=== PATIENT | male | born 1950 | race Caucasian/White ===

== ENCOUNTER 2020-07-03 17:02 | Outpatient (CLI) | payer MEDICARE, SELFPAY ==
--- NOTE | ~2020-07-03 | XR_ITS ---
XR_CERV2-3V_CR 07/03/2020 17:39 Indication: Chronic neck pain Procedure: 3 views of the cervical spine Comparison: No prior studies for comparison. Findings: Normal cervical alignment. There is disc narrowing at C5-6 and C6-7. There is moderate mult ilevel uncinate and facet hypertrophy. Lung apices are normal. There is carotid atherosclerosis. Marydel toid process within normal limits. Impression: 1: Moderate cervical spondylosis. Reviewed, dictated and finalized at location A. 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
--- NOTE | ~2020-07-03 | XR_ITS ---
XR thoracic spine 3V 07/03/2020 17:39 Indication: Chronic back pain Procedure: 4 views of the thoracic spine Comparison: No prior studies for comparison. Findings: There is normal alignment. There are prominent marginal osteophytes at the mid and lower th oracic spine. No acute fracture or traumatic malalignment. No paraspinal soft tissue abnormality. Deirdre rounding soft tissues and osseous structures are unremarkable. Vertebral body heights are maintained. Impression: 1: Moderate thoracic spondylosis. Reviewed, dictated and finalized at location A. 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
== END 2020-07-03 17:03 | disposition home or self-care (01) ==
LOC: CHSLAB 17:05
PROVIDERS: PCP Internal Medicine; Visit Provider Internal Medicine
DX: M54.6 Pain in thoracic spine (principal); M54.2 Cervicalgia
CPT/HCPCS: 72040; 72072

== ENCOUNTER 2020-07-13 08:19 | Outpatient (CLI) | payer MEDICARE, SELFPAY ==
--- NOTE | ~2020-07-13 | MR_ITS ---
EXAMINATION: MR thoracic spine wo con DATE: 07/13/2020 09:37 INDICATION: Chronic thoracic spine pain TECHNIQUE: Magnetic resonance imaging (MRI) of the thoracic spine was performed without intravenous c ontrast. Sagittal localizer T1-weighted FSE of the cervicothoracic spine was obtained. Thoracic spine sequences included sagittal T2-weighted FSE, sagittal T1-weighted SE, Sagittal T2-weighted FS FSE, a nd axial T2-weighted FSE. COMPARISON: Thoracic spine radiographs dated 07/03/2020 FINDINGS: 1-2 mm anterolisthesis C7 on T1.Normal alignment of the thoracic spine.Vertebral body heights are nor mal. There are small Schmorl's nodes involving multiple endplates throughout the thoracic spine. Mode rate disc height loss at T3-T4, T4-T5, T8-T9 through T11-T12 and mild disc height loss at the remaini ng thoracic levels. T1 hyperintense hemangioma at T1. Mild fibrofatty and fibrovascular degenerative endplate changes along the inferior endplates of T7, T11 and T12. Otherwise normal marrow signal. The re is normal spinal cord signal. The conus terminates below the level of the inferior margin of the f [id number] which is at the inferior endplate of L1. Multilevel bilateral thoracic facet osteoarthri tis which is of moderate severity bilaterally at T1-T2 through T2-T3 and at T10-T11, T11-T12 and T12- L1 and which is of mild severity at the intervening thoracic levels. This results in mild neural fora paul stenosis at multiple levels on both the left and right and the upper and lower thoracic spine. There are small disc bulges resulting in minimal to mild central canal stenosis at the majority the t horacic levels, the most prominent at T2-T3 through T4-T5. IMPRESSION: 1. Moderate thoracic spondylosis resulting in multilevel minimal to mild central canal and mild neura l foraminal stenosis. Reviewed, dictated and finalized at location A. IMPRESSION: 1. Moderate thoracic spondylosis resulting in multilevel minimal to mild centra l canal and mild neural foraminal stenosis.
--- NOTE | ~2020-07-13 | MR_ITS ---
EXAMINATION: MR cervical spine wo con DATE: 07/13/2020 09:37 INDICATION: Chronic neck pain. TECHNIQUE: Magnetic resonance imaging (MRI) of the cervical spine was performed without intravenous c ontrast. Sequences included sagittal T2-weighted FSE, sagittal T2-weighted FS FSE, sagittal T1-weight ed FSE, axial MERGE and axial T2-weighted FSE. COMPARISON: None FINDINGS: 1-2 mm anterolisthesis C7 on T1. Normal alignment of the cervical spine. Vertebral body heights are normal. T1 hyperintense hemangioma at T1. Mild fibrovascular degenerative endplate changes at C6-C7. Otherwise normal marrow signal. Mild disc height loss at C5-C6 and C6-C7. Cord signal intensity is no rmal. The visualized cervical soft tissues are unremarkable. The following disc levels are specifical ly discussed: C2-C3: The disc does not extend beyond the endplate margin. There is mild left uncovertebral joint os teoarthritis. There is moderate right and severe left facet joint osteoarthritis. There is mild bilat eral neural foraminal stenosis. There is no central canal stenosis. C3-C4: The disc does not extend beyond the endplate margin. There is mild bilateral uncovertebral adolfo nt osteoarthritis. There is mild left and severe right facet joint osteoarthritis. There is moderate bilateral neural foraminal stenosis. There is no central canal stenosis. C4-C5: The disc does not extend beyond the endplate margin. There is moderate bilateral uncovertebral joint osteoarthritis. There is moderate right and severe left facet joint osteoarthritis. There is m ild right and moderate to severe left neural foraminal stenosis. There is no central canal stenosis. C5-C6: Disc is bulging. There is moderate left and severe right uncovertebral joint osteoarthritis. T here is moderate left and severe right facet joint osteoarthritis. There is mild left and moderate ri ght neural foraminal stenosis. There is mild central canal stenosis. C6-C7: Disc is bulging. There is severe bilateral uncovertebral joint osteoarthritis. There is mild l eft and moderate right facet joint osteoarthritis. There is mild right and moderate left neural mauri inal stenosis. There is mild central canal stenosis. C7-T1: The disc does not extend beyond the endplate margin. There is mild right uncovertebral joint o steoarthritis. There is severe bilateral facet joint osteoarthritis. There is mild bilateral neural f oraminal stenosis. There is no central canal stenosis. IMPRESSION: 1. Cervical spondylosis with mild degenerative disc disease and multilevel moderate to severe facet a nd uncovertebral osteoarthritis. Reviewed, dictated and finalized at location A. IMPRESSION: 1. Cervical spondylosis with mild degenerative disc disease and multilevel mode rate to severe facet and uncovertebral osteoarthritis.
== END 2020-07-13 08:20 | disposition home or self-care (01) ==
LOC: CHSIMG 08:21
PROVIDERS: PCP Internal Medicine; Visit Provider Internal Medicine
DX: M54.2 Cervicalgia (principal); M54.6 Pain in thoracic spine
CPT/HCPCS: 72141; 72146

== ENCOUNTER 2020-12-20 07:46 | Outpatient (CLI) | payer MEDICARE, SELFPAY ==
--- NOTE | ~2020-12-20 | CT_ITS ---
EXAMINATION: CT chest abdomen w con EXAM DATE: 12/20/2020 08:27 INDICATION: Chest pain/abdominal pain radiating to back Lt Shoulder/Flank/Luq Pain X1.5yr,Nki,?Gall S tones . TECHNIQUE: Spiral CT of the chest and abdomen was performed following intravenous injection of 100 mL Omnipaque 350. Axial, coronal and sagittal images chest and abdomen were reviewed. Coronal maximum intensity pixel images of chest reviewed. The dose-length product (DLP) for this examination was 10 60.84 mGy-cm. The exposure was tailored according to patient size (auto mA exposure control), and it erative reconstruction (ASIR) was used as additional dose reduction technique. Comparison made to [facility] CT 03/25/2016 FINDINGS: CHEST: Fluid density anterior mediastinal mass most likely pericardial or thymic cyst but differentia l diagnosis does include thymoma, germ cell tumor. No soft tissue solid component identified along it s wall. Lungs are clear. There are no pleural or pericardial effusions. Tracheobronchial tree is p atent. There is no mediastinal, hilar or axillary lymphadenopathy. There is no pneumothorax. He art normal in size. There is mild coronary arterial calcification, arterial sclerosis. ABDOMEN: The liver, spleen, adrenal glands and pancreas are unremarkable. Gallbladder is unremarkabl e. No biliary obstruction. Portal and splenic veins are patent. Kidneys enhance symmetrically. Th ere is no hydronephrosis. Small renal lesions bilaterally consistent with cysts. There is no retrop eritoneal lymphadenopathy. There is mild scattered arteriosclerotic disease. Small umbilical fat-co ntaining hernia. There is mild descending and sigmoid colonic diverticulosis. There is no adjacent inflammatory tiwari e to suggest diverticulitis. The stomach and small bowel are unremarkable. There is expected amount of colonic stool. No free intraperitoneal gas. Bilateral L5 spondylolysis, chronic with grade 2 a nterolisthesis L5 on S1. There are no osteoblastic or osteolytic lesions identified. Right hip repla cement. IMPRESSION: 1. No acute chest or abdomen findings. 2. Anterior mediastinal cystic mass. Cardiothoracic surgeon typically indicated for histologic corre lation. 3. Colonic diverticulosis. 4. L5 spondylolysis, grade 2 anterolisthesis. Reviewed, dictated and finalized at location A. IMPRESSION: 1. No acute chest or abdomen findings. 2. Anterior mediastinal cystic mass. Cardiothoracic surgeon typically indicate d for histologic correlation. 3. Colonic diverticulosis. 4. L5 spondylolysis, grade 2 anterolisthesis.
[2020-12-20 08:06] LABS: Estimated Glomerular Filt Rate 54
== END 2020-12-20 07:47 | disposition home or self-care (01) ==
LOC: CHSIMG 07:47
PROVIDERS: PCP Internal Medicine; Visit Provider Internal Medicine
DX: R07.9 Chest pain, unspecified (principal); R10.9 Unspecified abdominal pain
CPT/HCPCS: 71260; 74160; Q9967

== ENCOUNTER 2024-01-06 01:45 | Day surgery (SDC) | payer MEDICARE, SELFPAY ==
[2023-12-16 12:03] VITALS: BMI 31.4
[2024-01-06 08:22] VITALS: BP 132/78; PULSE 77; RESP 20; TEMP 36.5; O2SAT 95
[2024-01-06] MEDS: LACTATED RINGERS 1,000 ML 150 ML IV CONT (08:32)
--- NOTE | 2024-01-06 09:02 | PM.IMHP ---
H&P: HPI History of Present Illness Date/Time: 01/06/24 09:02 Chief Complaint: Screening for colorectal cancer Narrative: this is a 73-year-old man who presents for colonoscopy. His last colonoscopy was 10 years ago. He denies any hematochezia or melena. He denies any family history of colon cancer. Review of Systems Review of Systems: All systems reviewed & are unremarkable except as noted in HPI and below Constitutional: Constitutional: Denies chills, Denies fever(s), Denies headache(s) and Denies weight loss Eyes: Eyes: Denies change in vision ENT: Denies dizziness, Denies headache(s), Denies neck mass and Denies throat swelling Cardiovascular: Cardiovascular: Denies chest pain, Denies lightheadedness and Denies dyspnea Respiratory: Respiratory: Denies cough, Denies dyspnea and Denies wheezing Gastrointestinal: Gastrointestinal: Denies abdominal pain, Denies change in bowel habits, Denies nausea and Denies vomiting Genitourinary: Genitourinary: Denies hematuria and Denies dysuria Musculoskeletal: Musculoskeletal: Reports as per HPI Integumentary/Breasts: Skin/Breast: Reports as per HPI Neurologic: Denies dizziness and Denies headache(s) Allergic/Immunologic: Allergic/Immunologic: Denies throat swelling and Denies wheezing PMFSH Social History Social History Smoking status: Never smoker Alcohol intake: never Substance use: never Substance use type: does not use Living arrangements: with family Spiritual care concerns: No Meds Home Medications and Allergies Home Medications Medication Instructions Recorded Confirmed Type pravastatin 40 mg tablet 40 mg PO DAILY 05/13/20 01/06/24 History amlodipine 5 mg tablet 5 mg PO DAILY 12/16/23 01/06/24 History ascorbic acid (vitamin C) 1,000 mg 1,000 mg PO DAILY 12/16/23 01/06/24 History tablet glucosamine sulf dipot 1 cap PO DAILY 12/16/23 01/06/24 History chlr,msm,chond 550 mg-C 30 mg-barry 1 mg capsule (Glucosamine Chondroitin) meloxicam 15 mg tablet 15 mg PO DAILY 12/16/23 01/06/24 History vitamin B complex 1 cap PO DAILY 12/16/23 01/06/24 History vitamin E 400 unit tablet 400 unit PO DAILY 12/16/23 01/06/24 History Allergies Allergy/AdvReac Type Severity Reaction Status Date / Time shellfish derived Allergy Hives Verified 01/06/24 08:20 Vital Signs Vital Signs - 24 hr 01/06/24 08:22 Temperature 36.5 C Pulse Rate 77 Respiratory Rate 20 Blood Pressure 132/78 Pulse Oximetry 95 Oxygen Delivery Room Air Exam Const: General: no acute distress and alert Orientation/consciousness: patient oriented x3 HENMT: Head: normocephalic and atraumatic Ears: hearing grossly normal bilaterally Face/Nose/Sinus: Normal nares present Mouth: Yes Normal oral and palatal mucosa present Eyes: Periorbital: periorbital findings normal Sclera: sclerae normal EOM: EOMs intact bilaterally Neck: Neck: normal visual inspection, no lymphadenopathy and trachea midline Chest: Chest palpation & inspection: normal inspection of the chest Resp: Effort & Inspection: normal respiratory effort Auscultation: clear to auscultation bilaterally Cardio: Jugular venous distension: no JVD Rate: regular rate Rhythm: regular rhythm Heart sounds: S1 normal heart sound present and S2 normal heart sound present Peripheral pulses: Peripheral pulses 2+ throughout GI: Inspection: normal to inspection GI Palp: Yes Soft to palpation, No Tenderness to palpation present (GI), No Guarding due to palpation present (GI) and No Rebound tenderness present Percussion: Yes normal to percussion Auscultation: normal bowel sounds : General: Yes no CVA tenderness Back/Spine/Pelvis: Back: no CVA tenderness Neuro: General: patient oriented x3, no focal motor deficits and CN's II-XI intact bilaterally Cognition (Neuro): normal cognition Speech: normal speech Motor exam (neuro): 5/5 motor strength present throughout Extrem: General: capillary refi
--- NOTE | 2024-01-06 09:10 | WPDANESEPPF ---
Anes - Initial Pre Proc Eval Procedure: Operation Date: 01/06/24 09:30 Proposed Procedures p Screening Colonoscopy - Babak Amanda DO Date/Time: 01/06/24 09:10 Surgeon: Babak Amanda DO Pre Op Diagnosis: Screening for malignant neoplasm of colon Patient Data Age: 73 Gender: M Height: 1.83 m Weight: 103.1 kg Last Vital Signs Temp 36.5 C 01/06/24 08:22 Pulse 77 01/06/24 08:22 Resp 20 01/06/24 08:22 BP 132/78 01/06/24 08:22 Pulse Ox 95 01/06/24 08:22 O2 Del Method Room Air 01/06/24 08:22 Allergies Allergy/AdvReac Type Severity Reaction Status Date / Time shellfish derived Allergy Hives Verified 01/06/24 08:20 Home Medications Medication Instructions Recorded Confirmed Type pravastatin 40 mg tablet 40 mg PO DAILY 05/13/20 01/06/24 History amlodipine 5 mg tablet 5 mg PO DAILY 12/16/23 01/06/24 History ascorbic acid (vitamin C) 1,000 mg 1,000 mg PO DAILY 12/16/23 01/06/24 History tablet glucosamine sulf dipot 1 cap PO DAILY 12/16/23 01/06/24 History chlr,msm,chond 550 mg-C 30 mg-barry 1 mg capsule (Glucosamine Chondroitin) meloxicam 15 mg tablet 15 mg PO DAILY 12/16/23 01/06/24 History vitamin B complex 1 cap PO DAILY 12/16/23 01/06/24 History vitamin E 400 unit tablet 400 unit PO DAILY 12/16/23 01/06/24 History Patient hx anesthesia problems: none Family hx anesthesia problems: none Results Review: All pre-operative results and documents have been reviewed as part of the pre-operative evaluation. [facility] Social History Social History Smoking status: Never smoker Alcohol intake: never Substance use: never Substance use type: does not use Living arrangements: with family Spiritual care concerns: No Anes - Eval Final PreProcedure Day of Procedure 01/06/24 09:10 Patient weight: obese Heart: regular rate and rhythm Lungs: clear to auscultation Airway: Mallampati scale class II Neurological: alert and oriented Last oral intake: >/= 8 hours ASA classification: III Emergent: no Anesthetic plan: proceed Anesthesia type and monitoring: general GIVS and standard monitoring Results Review: All pre-operative results and documents have been reviewed as part of the pre-operative evaluation. Informed Consent: The patient's anesthetic plan and its attendant risks and benefits were discussed with the patient/family/POA. Questions were solicited and answers provided to the satisfaction of the patient/family/POA.
[2024-01-06 09:58] VITALS: BP 119/74; PULSE 56; RESP 23; O2SAT 96
[2024-01-06 10:08] VITALS: BP 124/76; PULSE 54; RESP 16; O2SAT 99
[2024-01-06 10:18] VITALS: BP 143/87; PULSE 52; RESP 21; O2SAT 99
== END 2024-01-06 10:29 | disposition home or self-care (01) ==
PROVIDERS: PCP Internal Medicine; Visit Provider Surgery
PROC: 0DJD8ZZ Inspection of Lower Intestinal Tract, Via Natural or Artificial Opening Endoscopic (ICD-10-PCS; CPT 45378; principal; 2024-01-06 09:30)
DX: Z12.11 Encounter for screening for malignant neoplasm of colon (principal); K57.30 Diverticulosis of large intestine without perforation or abscess without bleeding; E66.9 Obesity, unspecified; Z68.30 Body mass index [BMI] 30.0-30.9, adult
CPT/HCPCS: G0121; J2704; J7120

== ENCOUNTER 2024-01-12 08:58 | Outpatient (CLI) | payer MEDICARE, SELFPAY ==
--- NOTE | ~2024-01-12 | XR_ITS ---
AP view of the pelvis and AP and lateral views of the left hip Clinical history: Pain Findings: No acute fracture or dislocation is seen. Osseous alignment is anatomic. There is moderate to advanced degenerative change of the left hip joint, especially superiorly where there is an space narrowing and reactive sclerosis. Right hip arthroplasty in place. Soft tissues are unremarkable. Impression: Moderate to advanced degenerative change at the superior aspect of the left hip joint. Right hip arthroplasty. Reviewed, dictated and finalized at location M. Impression: Moderate to advanced degenerative change at the superior aspect of the left hip joint. Right hip arthroplasty.
== END 2024-01-12 08:59 | disposition home or self-care (01) ==
LOC: CHSIMG 09:00
PROVIDERS: PCP Internal Medicine; Visit Provider Internal Medicine
DX: R10.32 Left lower quadrant pain (principal); Z96.641 Presence of right artificial hip joint
CPT/HCPCS: 73502

== ENCOUNTER 2024-01-27 13:21 | Outpatient (CLI) | payer MEDICARE, SELFPAY ==
--- NOTE | ~2024-01-27 | XR_ITS ---
EXAMINATION: XR lg joint inject/asp w image DATE: 01/27/2024 15:34 INDICATION: Left hip pain TECHNIQUE: A time-out was performed to verify the patient's name, date of , and procedure to b e performed. The procedure including the risks, benefits, and alternatives was discussed with the pat ient. Risks discussed included bleeding and infection. The patient understood the risks and agreed to proceed. The skin overlying the left hip joint was prepped and draped in usual sterile fashion. An esthetic was administered with 1% lidocaine subcutaneously. A 22 G needle was advanced under fluoros copic guidance into the joint. Injection of 1 mL of Omnipaque 240 confirmed intra-articular position of the needle. Subsequently, injectate consisting of 7 mm a 5:1:1 mixture of 1% lidocaine: 40 mg/mL Kenalog and 4 mg/mL dexamethasone for a total dosage of 40 mg Kenalog and 4 mg dexamethasone was ins tilled. Washout of contrast was seen confirming intra-articular administration. The needle was remove d and the entry site was cleaned and dressed. There were no immediate complications. Fluoroscopy exp osure time was 0.1 minutes. The total number of images was 2. Total DAP was 0.958 Gycm^2 FINDINGS: Real-time fluoroscopy demonstrates the needle in the left hip joint. Patient's pain prior t o procedure:4/10. Patient's pain following the procedure: 0/10. IMPRESSION: 1. Successful left hip joint injection of local anesthetic and steroid with decrease in the patient's presenting pain. Reviewed, dictated and finalized at location A. IMPRESSION: 1. Successful left hip joint injection of local anesthetic and steroid with dec rease in the patient's presenting pain.
== END 2024-01-27 13:22 | disposition home or self-care (01) ==
LOC: ANHIMG 13:27
PROVIDERS: PCP Internal Medicine; Visit Provider Internal Medicine
DX: M25.552 Pain in left hip (principal)
CPT/HCPCS: 20610; 77002; J1100; J2003; J3301; Q9966

== ENCOUNTER 2024-06-15 16:30 | Outpatient (CLI) | payer MEDICARE, SELFPAY ==
--- NOTE | ~2024-06-15 | XR_ITS ---
EXAMINATION: XR chest 2V DATE: 06/15/2024 16:48 INDICATION: Cough. TECHNIQUE: Frontal and lateral views of the chest were obtained on 3 radiographs. COMPARISON: Chest 2 views 11/25/2017, chest CT 12/20/2020 FINDINGS: There is no pneumonia, pleural effusion, or pneumothorax. The heart size is normal. IMPRESSION: 1. No acute cardiopulmonary disease. Reviewed, dictated and finalized at location A. GATIONIST DESIGNER
--- OUTSIDE RECORDS SUMMARY | 2024-06-15 16:33 | XMS_ITS | Clinical Summary ---
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 Active Active Problems Problem Noted Date Diagnosed Date Mixed hyperlipidemia 07/25/2018 Dizziness and giddiness 07/25/2018 Family History Medical History Relation Comments Heart Disease Mother Relation Status Comments Mother Social History Tobacco Use Types Packs/Day Years Used Date Smoking Tobacco: Former Smokeless Tobacco: Never Alcohol Use Standard Drinks/Week Comments Yes 0 (1 standard drink = 0.6 oz pur e alcohol) occasionally AUDIT-C Answer Date Recorded Frequency of Alcohol Consumption Never 03/02/2018 Average Number of Drinks Not on file 018 Frequency of Binge Drinking Not on file 10/2017 Sex and Gender Information Value Date Recorded Sex Assigned at Not on file Legal Sex Male 10:11 AM CDT Gender Identity Not on file Sexual Orientation Not on file Occupation Industry Job Start Date Job End Date 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 Not on file Not on file Not o n file Last Filed Vital Signs Vital Sign Reading Time Taken Comments Blood Pressure 132/80 01/23/2021 1:14 PM CDT Pulse 110 01/23/2021 1:14 PM CDT Temperature - - Respiratory Rate 18 01/23/2021 1:14 PM CDT Oxygen Saturation 94% 03/03/2018 1:44 PM 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 Inhaled Oxygen Concentration - - Weight 106.1 kg (233 lb 12.8 oz) 01/23/2021 1:14 PM CDT Height 182.9 cm (6') 01/23/2021 1:14 PM CDT Body Mass Index 31.71 01/23/2021 1:14 PM CDT Plan of Treatment Health Maintenance Due Date Last Done Comments Colorectal Cancer Screening Colonoscopy (10 Years) 1948 Hepatitis C 1966 DTaP, Tdap and Td Vaccines ( 1 - Tdap) 12/15/1967 Annual Medicare Wellness Visit 2013 Pneumococcal Vaccine: 65+ Years (2 of 2 - PPSV23 or PCV20) 07/22/2018 07/22/2017 Zoster Vaccines (3 of 3) 11/15/2020 021, 04/14/2012 RSV Immunization or 60+ Years (1 - 1-dose 75+ series) 12/15/2023 COVID-19 Vaccine (3 - 2023-2 5 season) 2023 06/19/2020, 05/29/2020 Influenza Adult (#1) 2024 Meningococcal B Vaccine Aged Out No l onger eligible based on patient's age to complete this topic Meningococcal Vaccine Aged Out No yadira jeff eligible based on patient's age to complete this topic RSV Immunizations Under 20 Months Aged Out No longer eligible b ased on patient's age to complete this topic Insurance MED REPLACE [facility] MEDICARE MED REPLACE [facility] MEDICARE Care Teams Propellant Charge Zone Assembler Relationship Specialty Start Date End Date Gregorio Vásquez MD [address] [place] [address] PCP - General INTERNAL MEDICINE 03/02/18 David Bain MD [address] [place] [address] [employer] CARDIOVASCULAR DISEASE 03/02/18 Helen Cazares, PETRA, DEPUTY DIRECTOR OF FINANCE-C [phone] [facility] [address] [place] [address] [employer] NURSE PRACTITIONER 12/25/20
--- OUTSIDE RECORDS SUMMARY | 2024-06-15 16:33 | XMS_ITS | Referral Summary ---
Author Organization [facility] Address [address] [place] [address] Care Team Providers Care Civil Engineering Technician Name Role Phone Gregorio Vásquez MD Primary Care Provider [phone] Allergies Active Allergy Reactions Criticality Noted Date Comments Duloxetine Hives Medium 01/23/2021 Shellfish Derived Unknown 03/01/2018 Medications pravastatin (PRAVACHOL) 20 mg tablet 1 Active EPINEPHrine 0.3 mg/0.3 mL auto-injection syringe Inject into the muscle as instructed Active DULoxetine DR (CYMBALTA) 30 mg capsule Take 1 capsule (30 mg total) by mouth daily 7 capsule [address] (CYMBALTA) 60 mg capsule Take 1 capsule (60 mg total) by mouth daily 30 capsule 1 1 Active Additional Information Patient not taking.Reported on 01/24/2021 ascorbic acid (VITAMIN C ORAL) Take by mouth Active vitamin E acetate (VITAMIN E ORAL) Take by mouth Active vitamin B complex capsule Take 1 capsule by mouth daily Active cholecalciferol , vitamin D3, (VITAMIN D3 ORAL) Take by mouth as needed During the winter Active amLODIPine (NORVASC) 5 mg tablet 2 Active glucosam/chond- msm1/C/barry/bor (GLUCOSAMINE-CH OND-MSM COMPLEX ORAL) Take by mouth Active Active Problems Problem Noted Date Diagnosed Date 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 2-3 times a week 12/05/2020 Q2: How many drinks containi ng alcohol do you have on a typical day when you are drinking? 1 or 2 12/05/2020 Q3: How often do you have si x or more drinks on one occasion? 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 Gender Identity Male 06/04/2021 9:41 AM DATA PROCESSING CLERK Sexual Orientation Not on file Last Filed Vital Signs Vital Sign Reading Time Taken Comments Blood Pressure 158/80 02/20/2022 8:08 AM CDT Pulse 65 02/20/2022 8:08 AM CDT Temperature 36.3 C (97.3 F) 01/24/2021 8:38 AM CDT Respiratory Rate 18 02/20/2022 8:08 AM CDT Oxygen Saturation 96% 02/20/2022 8:08 AM CDT room air Inhaled Oxygen Concentration - - Weight 103.1 kg (227 lb 3.2 oz) 02/20/2022 8:08 AM CDT Height 182.9 cm (6') 02/20/2022 8:08 AM CDT Body Mass Index 30.81 02/20/2022 8:08 AM CDT Plan of Treatment Not on file Goals Goal Patient Goal Type Associated Problems Recent Progress Patient-Stated? Author CCM Chronic Pain Care Plan Chronic Care Management No change(10/14 7:58 AM CDT) No Samra Painting, GLEN[place] Note: Problem: Chronic Pain Goals: 1. Minimize further functional decline 2. Maximize quality of life 3. Control pain Strategies: - Activity/exercise program recommendation - Conservative stepwise pain medicine strategy with multi-disciplinary approach - Recommend healthy lifestyle strategies and compensatory methods as needed Medical Devices Implanted Type Area Children'S Book Author Device Identifier Shelf Expiration Date Model / Serial / Lot Hip Replacement Right: Hip Insurance [employer] MEDICARE MEDICARE [facility] MEDICARE Address: [address] [address] [place] [address] Care Teams Civil Engineering Technician Relationship Specialty Start Date End Date Gregorio Vásquez MD [address] [place], [place] [id number] PCP - General Internal Medicine 03/06/19
--- OUTSIDE RECORDS SUMMARY | 2024-06-15 16:33 | XMS_ITS | Clinical Summary ---
Author Organization [facility] Address [address] [place] [address] Care Team Providers Care Geodetic Surveyor Technologist Name Role Phone Gregorio Vásquez MD Primary Care Provider [phone] Allergies Active Allergy Reactions Criticality Noted Date [...] 08/09/2020 Upper back pain 08/09/2020 Cervicalgia 01/29/2011 Surgical History Surgery Date Site/Laterality Comments HIP SURGERY Medical History Medical History Date Comments Personal history of arthritis Os teoarthritis - (Added by TW Conv) Arthritis Neck pain Shoulder pain, left Chronic rhinitis Personal history of colonic polyps Calculus of kidney Steatohepatitis, non-alcoholic Mixed hyperlipidemia Presence of right artificial hip joint Bursitis of left shoulder Radiculopathy of cervical region Radiculopathy of thoracic region Low back pain Chest pain, unspecified 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 Family History Medical History Relation Name Comments Coronary artery disease Mother Hypertension Mother Cancer Sister Relation Name Status Comments Father Mother Alive Sister Social History Tobacco Use Types Packs/Day Years [...] on file Legal Sex Male 9:09 AM 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 Gender Identity Male 06/04/2021 9:41 AM INDUSTRIAL 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 Sexual Orientation Not on file Obstetrics History Last Filed Vital Signs Vital Sign Reading [...] 02/20/2022 8:08 AM CDT Plan of Treatment Health Maintenance Due Date Last Done Comments Colon Cancer Screening-Colonoscopy 1950 Depression Screening 1950 Fall Risk Assessment 1950 Hepatitis C Screening 1950 DTaP/Tdap/Td Vaccine (1 - Tdap) 12/15/1959 Hepatitis B Screening 1966 Zoster Vaccine (2 of 3) 06/09/2012 04/14/2012 Abdominal Aortic Aneurysm (A AA) Screen 2013 Well Visit 65+ 2013 Pneumococcal vaccine 65+ Completed 07/22/2017, 04/27 Influenza Vaccine Completed 03/15/2024, , 03/14/2018, Additional history exists Goals Goal Patient Goal Type Associated Problems [...] as needed Medical Devices Implanted Type Area Collection Team Lead Device Identifier Shelf Expiration Date Model / Serial / Lot Hip Replacement Right: Hip Insurance A[employer] MEDICARE MEDICARE [facility] MEDICARE [facility]IC[facility] Address: [facility] [address] [place] [address] Care Teams Geodetic Surveyor Technologist Relationship Specialty Start Date End Date Gregorio Vásquez MD [address] [place] [address] PCP - General Internal Medicine 03/06/19
[2024-06-15 16:45] LABS: Hematocrit 44.5 % (37.0-46.0); Hemoglobin 13.9 g/dL (12.4-15.3); Mean Corpuscular HGB Conc 31.2 g/dL (32-36); Mean Corpuscular Hemoglobin 26.7 pg (27.0-31.0); Mean Corpuscular Volume 85.4 fL (78.0-102.0); Mean Platelet Volume 9.9 fl (8.7-11.0); Platelet Count Result 209 K/mm3 (150-420); Red Blood Count 5.21 M/mm3 (4.70-6.10); Red Cell Distribution Width 13.3 % (11.6-14.4); White Blood Count 7.6 K/mm3 (4.8-10.8)
[2024-06-15 17:08] LABS: Alanine Aminotransferase 27 U/L (16-63); Albumin Level 4.2 g/dL (3.4-5.0); Alkaline Phosphatase 115 U/L (46-116); Anion Gap 10 mmol/L (4-12); Aspartate Amino Transferase 25 U/L (15-37); Bilirubin,Total 0.6 mg/dL (0.00-1.00); Blood Urea Nitrogen 22 mg/dL (7-18); Calcium 8.9 mg/dL (8.5-10.1); Carbon Dioxide 28 mmol/L (21-32); Chloride 101 mmol/L (98-108); Estimated Glomerular Filt Rate 41; Glucose 93 mg/dL (70-99); Osmolality Calculated 291 mOsm/kg (285-295); Potassium 4.4 mmol/L (3.5-5.1); Sodium 139 mmol/L (136-145); Total Protein 8.5 g/dL (6.4-8.2)
[2024-06-15 17:16] LABS: Band Neutrophils Percent 0 % (0-6); Basophils Absolute Manual 0.07 K/mm3 (0-0.1); Basophils Percent Manual 1 % (0-1); Eosinophils Absolute Manual 0.07 K/mm3 (0.02-0.50); Eosinophils Percent Manual 1 % (1-6); Lymphocytes Absolute Manual 1.14 K/mm3 (1.1-4.5); Lymphocytes Percent Manual 15 % (18-44); Monocytes Absolute Manual 1.67 K/mm3 (0.1-0.90); Monocytes Percent Manual 22 % (3-9); Myelocytes Percent 1 %; Neutrophils Absolute Manual 4.56 K/mm3 (1.3-6.7); Neutrophils Percent Manual 60 % (46-73); Platelet Clumps Present; Platelet Estimate Adequate (Adequate); Schistocytes None Seen; Total Cells Counted 100
[2024-06-15 17:39] LABS: Influenza A QL RT-PCR Positive (Negative); Influenza B QL RT-PCR Negative (Negative); RSV RNA, RT-PCR Negative (Negative)
== END 2024-06-15 16:31 | disposition home or self-care (01) ==
PROVIDERS: PCP Internal Medicine; Visit Provider Internal Medicine
DX: R05.9 Cough, unspecified (principal)
CPT/HCPCS: 36415; 71046; 80053; 85025; 87637

== ENCOUNTER 2024-11-22 13:40 | Outpatient (CLI) | payer MEDICARE, SELFPAY ==
--- NOTE | ~2024-11-22 | XR_ITS ---
EXAMINATION: XR lg joint inject/asp w image DATE: 11/22/2024 14:28 INDICATION: Left hip pain TECHNIQUE: A time-out was performed to verify the patient's name, date of , and procedure to b e performed. The procedure including the risks, benefits, and alternatives was discussed with the pat ient. Risks discussed included bleeding and infection. The patient understood the risks and agreed to proceed. The skin overlying the left hip joint was prepped and draped in usual sterile fashion. An esthetic was administered with 1% lidocaine subcutaneously. A 22 G needle was advanced under fluoros copic guidance into the joint. Injection of 1 mL of Omnipaque 240 confirmed intra-articular position of the needle. Subsequently, injectate consisting of 6 mm of a 4:1:1 mixture of 1% lidocaine:40 mg/ mL Kenalo mg/mL dexamethasone for a total dosage of 40 mg Kenalog and 4 mg dexamethasone was insti lled. Washout of contrast was seen confirming intra-articular administration. The needle was removed and the entry site was cleaned and dressed. There were no immediate complications. Fluoroscopy expos ure time was 0.1 minutes. The total number of images was 1. FINDINGS: Real-time fluoroscopy demonstrates the needle in the left hip joint. Patient's pain prior t o procedure:10/03. Patient's pain following the procedure: 07/03. IMPRESSION: 1. Successful left hip joint injection of local anesthetic and steroid with decrease in the patient's presenting pain. Reviewed, dictated and finalized at location A. IMPRESSION: 1. Successful left hip joint injection of local anesthetic and steroid with dec rease in the patient's presenting pain.
--- OUTSIDE RECORDS SUMMARY | 2024-11-22 13:52 | XMS_ITS | Clinical Summary ---
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 on file Not on file Not o n file Last Filed Vital Signs Vital Sign Reading Time Taken Comments Blood Pressure 132/80 01/23/2021 1:14 PM CDT Pulse 110 01/23/2021 1:14 PM CDT Temperature - - Respiratory Rate 18 01/23/2021 1:14 PM CDT Oxygen Saturation 94% 03/03/2018 1:44 PM ENERGY AUDIT ADVISOR Inhaled Oxygen Concentration - - Weight 106.1 [...] Annual Medicare Wellness Visit 2013 Pneumococcal Vaccine: 50+ Years (2 of 2 - PPSV23) 07/22/2018 07/22/2017 Zoster Vaccines (3 of 3) 11/15/2020 021, 04/14/2012 RSV Immunization or 60+ Years (1 - 1-dose 75+ series) 12/15/2023 COVID-19 Vaccine (3 - 2023-2 5 season) 2023 06/19/2020, 05/29/2020 Meningococcal B Vaccine Aged Out No l onger eligible based on patient's age to complete this topic Meningococcal Vaccine Aged Out No yadira jeff eligible based on patient's age to complete this topic RSV Immunizations Under 20 Months Aged Out No longer eligible b ased on patient's age to complete this topic Insurance MED REPLACE [facility] MEDICARE MED REPLACE [facility] MEDICARE Care Teams Labor Economist Relationship Specialty Start Date End Date Gregorio Vásquez MD [address] [place] [address] PCP - General INTERNAL MEDICINE 03/02/18 David Bain MD [address] [place] [phone] [place] Head Waiter CARDIOVASCULAR DISEASE 03/02/18 Helen Cazares APRN, MANAGER TRUST-C [address] [facility] [address] [place] [address] [place] Head Waiter NURSE PRACTITIONER 12/25/20
--- OUTSIDE RECORDS SUMMARY | 2024-11-22 13:52 | XMS_ITS | Referral Summary ---
Author Organization [facility] Address [address] [place] [address] Care Team Providers Care Mechanical Engineering Director Name Role Phone Gregorio Vásquez MD Primary Care Provider [phone] Allergies Active Allergy Reactions Criticality Noted Date [...] on file Legal Sex Male 9:09 AM TECHNICIAN ANATOMIC PATHOLOGY Gender Identity Male 06/04/2021 9:41 AM TECHNICIAN ANATOMIC PATHOLOGY Sexual Orientation Not on file Last Filed [...] as needed Medical Devices Implanted Type Area Money Position Officer Device Identifier Shelf Expiration Date Model / Serial / Lot Hip Replacement Right: Hip Insurance [facility] MEDICARE UHC MEDICARE [facility] MEDIC[facility] Address: [address] [address] [place] [id number] [place] [address] MEDICARE [facility] MEDIC[facility] Address: [facility] [address] [place] [address] Care Teams Mechanical Engineering Director Relationship Specialty Start Date End Date Gregorio Vásquez MD [address] [place], [place] [phone] PCP - General Internal Medicine 03/06/19
--- OUTSIDE RECORDS SUMMARY | 2024-11-22 13:52 | XMS_ITS | Clinical Summary ---
Author Organization [facility] Address [address] [place] [address] Care Team Providers Care Kapok Machine Operator Name Role Phone Gregorio Vásquez MD Primary Care Provider [phone] Allergies Active Allergy Reactions Criticality Noted Date [...] on file Legal Sex Male 9:09 AM MOLD TOOLING TECHNICIAN Gender Identity Male 06/04/2021 9:41 AM MOLD TOOLING TECHNICIAN Sexual Orientation Not on file Obstetrics History [...] AA) Screen 2013 Well Visit 65+ 2013 Influenza Vaccine (#1) 2024 4, 02/09/2019, 03/14/2018, Additional history exists Pneumococcal vaccine 65+ Completed 07/22/2017, 04/27 Goals Goal Patient Goal Type Associated Problems Recent Progress Patient-Stated? Author CCM Chronic Pain Care Plan Chronic Care Management No change(10/14 7:58 AM CDT) No Samra Painting RN Note: Problem: Chronic Pain Goals: 1. Minimize further functional decline 2. Maximize quality of life 3. Control pain Strategies: - Activity/exercise program recommendation - Conservative stepwise pain medicine strategy with multi-disciplinary approach - Recommend healthy lifestyle strategies and compensatory methods as needed Medical Devices Implanted Type Area Gse Mechanic Device Identifier Shelf Expiration Date Model / Serial / Lot Hip Replacement Right: Hip Insurance [facility] MEDICARE UHC MEDICARE ADVANTAGE AET[employer] MEDICARE [facility] MEDICARE Address: [facility] [id number] [place] [address] Care Teams Kapok Machine Operator Relationship Specialty Start Date End Date Gregorio Vásquez MD [address] [place] [address] PCP - General Internal Medicine 03/06/19
== END 2024-11-22 13:41 | disposition home or self-care (01) ==
PROVIDERS: PCP Internal Medicine; Visit Provider Internal Medicine
DX: M25.552 Pain in left hip (principal)
CPT/HCPCS: 20610; 77002; J1100; J2003; J3301; Q9966

== ENCOUNTER 2024-12-18 15:53 | Outpatient (CLI) | payer MEDICARE, SELFPAY ==
--- NOTE | ~2024-12-18 | MR_ITS ---
Clinical history:Back pain, thoracic EXAM:MR thoracic spine without contrast TECHNIQUE:Multiplanar, multisequence images of the thoracic spine were obtained without contrast Comparisons:Thoracic spine MRI 07/13/2020 FINDINGS: Thoracic vertebral body heights and alignment are within normal limits. Minimal grade 1 anterolisthesis of C7 on T1,. Thoracic vertebral body heights are within normal limits. No compression fracture in the thoracic spine. No abnormal signal within the spinal cord. Disc desiccation throughout the thoracic spine similar to the prior study. Stable hemangioma in the T1 vertebral body. At the T2-T3 level, small concentric disc bulge with degenerative change in the facet joints causing mild narrowing of the spinal canal and moderate narrowing of the bilateral neural foramen. At the T3-T4 level, there is a small concentric disc bulge and degenerative change in the facet joints causing mild narrowing of the spinal canal and mild narrowing of the bilateral neural foramen. At the T4-T5 level, there is a small concentric disc bulge with degenerative change in the facet joints causing mild narrowing of the spinal canal and mild narrowing of the bilateral neural foramen. At the T11-T12 level, there is a small concentric disc bulge with degenerative change in the facet joints cause mild narrowing of the spinal canal and mild narrowing of the bilateral neural foramen. IMPRESSION: Multilevel cect-tu-lgdkzuxn discogenic and degenerative change in the thoracic spine as detailed above. Reviewed, dictated and finalized at location Q. IMPRESSION: Multilevel anhg-in-hjlwroov discogenic and degenerative change in the thoracic spine as detailed above.
== END 2024-12-18 15:54 | disposition home or self-care (01) ==
LOC: MICIMG 15:55
PROVIDERS: PCP Internal Medicine; Visit Provider Nurse Practitioner Family
DX: M51.84 Other intervertebral disc disorders, thoracic region (principal); M51.34 Other intervertebral disc degeneration, thoracic region
CPT/HCPCS: 72146

== ENCOUNTER 2025-04-21 10:00 | Emergency (ER) | payer MEDICARE, SELFPAY ==
[2025-04-21] VITALS (29 sets, daily range): BP systolic 88–130; BP diastolic 57–79; PULSE 67–106; RESP 12–22; TEMP 37; O2SAT 95–100
--- NOTE | ~2025-04-21 | XR_ITS ---
Examination: XR chest 1V portable Clinical History: Shortness of breath Comparison: 06/15/2024 Technique: Portable AP Findings: Heart size normal. Lungs clear. No acute bony abnormality. IMPRESSION: 1. No acute cardiopulmonary findings given portable technique. Reviewed, dictated and finalized at location R. SION SALES MANAGER
--- NOTE | ~2025-04-21 | CT_ITS ---
CTA CHEST ABDOMEN PELVIS CLINICAL HISTORY: Shortness of breath/ hematemesis/ constipation . COMPARISON: CT chest abdomen and 12/11/2020 TECHNIQUE: Helical CT performed from thoracic inlet to symphysis pubis 100 mL Omnipaque 350 Coronal, sagittal reformats. Multiplanar MIPS CT images acquired with automatic exposure control for dose reduction DLP: 1687 mGy-cm FINDINGS: CHEST- Thoracic Aorta: No dissection. No aneurysm. Pulmonary arteries: Normal caliber. No PE. Lungs/Pleura: Mild scattered scarring. Heart: Mild coronary artery calcification. Tracheobronchial tree: Patent. Nodes: No enlarged nodes. Bones: No acute bony abnormality. Soft tissues: Unchanged cystic lesion anterior mediastinum. ABDOMEN/PELVIS- CTA Abdominal aorta: No aneurysm or dissection. Atherosclerotic disease. Common iliac arteries: Patent. External iliac arteries: Patent. Hypogastric arteries: Patent. CFAs: Patent. Proximal visualized SFAs and profundas: Patent. Celiac: Patent. SMA: Patent. TRISHA: Patent. Renal arteries: Patent. NON-CTA Liver: Steatosis. Gallbladder: Unremarkable. Spleen: Unremarkable. Pancreas: Unremarkable. Adrenal glands: Unremarkable. Kidneys: Bilateral cysts. Right kidney- No hydronephrosis. No renal stones. Left kidney- No hydronephrosis. No renal stones. Distal esophagus/stomach: Unremarkable. Small bowel loops: Normal caliber and wall thickness. Colon: Diverticula. Normal caliber and wall thickness. Normal RLQ appendix. Nodes: No enlarged nodes. Peritoneum: No ascites. No free air. Urinary bladder: Unremarkable. Prostate: Unremarkable. Bones: No acute bony abnormality. Soft tissues: Small umbilical hernia with fat. IMPRESSION: CHEST- 1. No acute cardiopulmonary findings. ABDOMEN/PELVIS- 1. No acute abdominopelvic findings. Reviewed, dictated and finalized at location R. [employer]NAL PROPERTY MANAGER
--- OUTSIDE RECORDS SUMMARY | 2025-04-21 10:09 | XMS_ITS | Data Portability ---
Author Organization [facility], [address] [facility] ([place]) Address [address] [place] [address] Care Team Providers Care Senior Art Director Name Role Phone OKSANA MUELLER Primary Care Provider [phone] Assessment No assessment recorded. Plan of Treatment Reminders Order Date Submit Date Provider Last Modified By Organization Details Last Modified Time Details Appointments None record ed. Lab None record ed. Referral None record ed. Procedures None record ed. Surgeries None record ed. Imaging None record ed. Medication Orders None record ed. Patient TargetsNo targets recorded. Patient InstructionsNo instructions recorded. Reason for Referral None Reported. Results Created Date Observation Date Name Description Value Unit Range Abnormal Flag Note LastModifiedBy Organization Detail LastModifiedTime 09/09/19 25 09/05/2024 nerve condu ction study /EMG, upper extre mity (PROC ) No observ ation record ed. BARCODE Not Available 2024 10:51:11 Result Notes None recorded. 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 Procedures Surgical History Date Name Laterality Status Provider Name and Address Organization Details Recorded Time [place] [facility] Procedure completed Erika Mcleod MD [address] [place], [address], [facility] 09/05/2024 10:12:58 Imaging Results None recorded. Procedure Notes None recorded. Medical Equipment None Reported. Vitals None Recorded Social History None recorded. Functional Status None recorded. Mental Status None recorded. Family History Nothing Reported. Medical History No medical history recorded. Past Encounters Encounter ID Performer Location Encounter Start Date Encounter Closed Date Diagnosis/Indication Diagnosis SNOMED-CT Code Diagnosis ICD10 Code Diagnosis IMO Codes Diagnosis Note [id number] Erika Mcleod MD [facility] [address] [place] [address] 09/05/2024 08:45:07 09/05/2024 10:22:06 Median neuropathy 054901593 G56.10 [id number] Health Concerns Section Related Observation LastModified by Organization Detai ls LastModified Time None Recorded Concern Status LastModified by Organization Details LastModified Time None Recorded Advance Directives Directive None Recorded Payers Insurance Date Sequence Insurance Name Policy Number Policy Nazario Covered Member ID Nazario Member ID Guarantor Name 09/05/2024 1 [employer] (MEDICARE REPLACEMENT/ ADVANTAGE - PPO) [id number] Azam Antony [id number] Azam Antony
--- OUTSIDE RECORDS SUMMARY | 2025-04-21 10:09 | XMS_ITS | Clinical Summary ---
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 on file Not on file Not o n file Last Filed Vital Signs Vital Sign Reading Time Taken Comments Blood Pressure 132/80 01/23/2021 1:14 PM CDT Pulse 110 01/23/2021 1:14 PM CDT Temperature - - Respiratory Rate 18 01/23/2021 1:14 PM CDT Oxygen Saturation 94% 03/03/2018 1:44 PM GYROSCOPE TECHNICIAN Inhaled Oxygen Concentration - - Weight 106.1 kg (233 lb 12.8 oz) 01/23/2021 1:14 PM CDT Height 182.9 cm (6') 01/23/2021 1:14 PM CDT Body Mass Index 31.71 01/23/2021 1:14 PM CDT Plan of Treatment Health Maintenance Due Date Last Done Comments Hepatitis C 1966 DTaP, Tdap and Td Vaccines ( 1 - Tdap) 12[birth year]15/1967 Annual Medicare Wellness Visit 2013 Pneumococcal Vaccine: 50+ Years (2 of 2 - PCV20 or PCV21) 07/22/2018 07/22/2017 Zoster Vaccines (3 of 3) 11/15/2020 021, 04/14/2012 RSV Immunization or 60+ Years (1 - 1-dose 75+ series) 12/15/2023 COVID-19 Vaccine (3 - 2024-2 6 season) 2024 06/19/2020, 05/29/2020 Influenza Adult (#1) 2025 Hepatitis A Vaccines Aged Out No long er eligible based on patient's age to complete this topic Meningococcal B Vaccine Aged Out No l onger eligible based on patient's age to complete this topic Meningococcal Vaccine Aged Out No yadira jeff eligible based on patient's age to complete this topic RSV Immunizations Under 20 Months Aged Out No longer eligible b ased on patient's age to complete this topic Insurance [facility] MEDICARE MED REPLACE [facility] MEDICARE Care Teams Basting Cleaner Relationship Specialty Start Date End Date Gregorio Vásquez MD [address] [place] [phone] PCP - General INTERNAL MEDICINE 03/02/18 David Bain MD [address] [place] [phone] [place] Candy Spreader CARDIOVASCULAR DISEASE 03/02/18 Helen Cazares APRN, GUEST SERVICES AGENT-C [address] [place] [address] [address] [place] [address] [place] Candy Spreader NURSE PRACTITIONER 12/25/20
--- NOTE | 2025-04-21 10:16 | ECG_ITS ---
Test Date: 2025-04-21 10:20:32 Measurements Intervals [place] Rate: 81 P: 31 [place]: 172 QRS: -10 QRSD: 94 T: 10 QT: 369 QTc: 430 Interpretive Statements SINUS RHYTHM BASELINE WANDER- II, III, AVR, AVL, AVF, V1 NORMAL ECG No previous ECG available for comparison Electronically Signed On 04-21-2025 21:09:49 BELT OPERATOR by Shen Dao D.O.
--- NOTE | 2025-04-21 10:16 | ED.NAVMDI ---
HPI - Nausea/Vomiting/Diarrhea General Chief complaint: Nausea/Vomiting/Diarrhea Stated complaint: vomiting Source: patient and EMS History of Present Illness HPI Narrative: This is a 74-year-old male, with history of hypertension and hyperlipidemia, status post left hip replacement 11 days ago at [facility] [place], brought in by EMS from home complaining of lightheadedness. The patient states this morning shortly after waking, he felt nauseous, had 1 episode of black appearing vomitus, then felt lightheaded while standing in the shower. He denies loss of consciousness, chest pain, abdominal pain or bleeding elsewhere. He states he has been constipated since the surgery with 1 normal-appearing bowel movement 3 days ago and 1 prior episode of black appearing vomitus. He was discharged with 81 mg of aspirin twice a day. He complains of moderate left hip pain but has no other complaints at this time. Related Data Home Medications ?Medication ?Instructions ?Recorded ?Confirmed ?Last Taken ?Type pravastatin 40 mg tablet 40 mg PO DAILY 05/13/20 04/02/25 01/05/24 History amlodipine 5 mg tablet 5 mg PO DAILY 12/16/23 04/02/25 01/05/24 History ascorbic acid (vitamin C) 1,000 mg 1,000 mg PO DAILY 12/16/23 04/02/25 01/05/24 History tablet glucosamine sulf dipot 1 cap PO DAILY 12/16/23 04/02/25 01/05/24 History chlr,msm,chond 550 mg-C 30 mg-barry 1 mg capsule (Glucosamine Chondroitin) vitamin B complex 1 cap PO DAILY 12/16/23 04/02/25 01/05/24 History vitamin E 400 unit tablet 400 unit PO DAILY 12/16/23 04/02/25 01/05/24 History Allergies Allergy/AdvReac Type Severity Reaction Status Date / Time shellfish derived Allergy Hives Verified 04/21/25 10:47 Review of Systems Review of Systems: All systems reviewed & are unremarkable except as noted in HPI and below (HPI) PMFSH Past Medical History Medical History Dyslipidemia Hypertension Surgical History Surgical History History of carpal tunnel release History of left hip replacement History of right hip replacement Social History Social History Smoking status: Never smoker Alcohol intake: never Substance use: never Substance use type: does not use Living arrangements: with family Spiritual care concerns: No Exam Narrative: GENERAL: Well-developed, well-nourished, and in no acute distress. HEAD: Normocephalic, atraumatic. EYES: PERRLA and EOMI. Pale conjunctiva ENT: Nares clear, no rhinorrhea or epistaxis. Mucous membranes moist. Oropharynx without tonsillar hypertrophy exudate or other lesions. NECK: Supple. No adenopathy or masses. No carotid bruits or JVD CHEST: Clear to auscultation. No respiratory distress. No wheezes rales or rhonchi HEART: Regular rate and rhythm. No murmur heard. Normal peripheral pulses. ABDOMEN: Soft, nontender, nondistended, normal active bowel sounds. EXTREMITIES: There is a well-approximated, healing surgical wound over the left hip with no noted erythema, induration, dehiscence or active bleeding. There is no palpable thrill or changes concerning for expanding hematoma. Normal range of motion. No edema. SKIN: Warm, dry, no rash. NEURO: Alert and oriented x3. No focal deficit. Moving all 4 limbs spontaneously PSYCH: Normal mood and affect. Course Course Emergency Course: 12:03 - CBC demonstrates elevated white blood cell count of 15.7 with hemoglobin of 9 and platelets of 264. The patient had prior hemoglobin of 13.9 in May 2024. INR within normal limits. Chemistries demonstrate increased BUN of 30 and lipase of 735 without other acute changes. Chest x-ray not concerning for acute cardiopulmonary process. EKG demonstrates normal sinus rhythm arrhythmia or changes concerning for ischemia. CT angiogram chest abdomen pelvis negative for PE or acute intra-abdominal process. The patient's momentarily decreased to 88 systolic with intermittent episodes of tachycardia to the 110s. This improved to 120 4/77 after a L of fluids. Given his episodes of vomitus, elevated BUN, and use of aspirin, I have increased suspicion for upper GI bleed. It is unclear to what degree his recent surgery contributed to his anemia. I discussed these findings with the patient with recommendation for transfer to a facility with GI for upper endoscopy. The patient voiced understanding and is comfortable plan. 12:38 - I discussed the patient with [facility] GI physician, Dr. Hinkle who agrees to consult. 13:19 - I discussed the patient with [facility] hospitalist, REMI Hinojosa who accepts transfer. Vital Signs Vital signs: Vital Signs Temperature 98.6 F 04/21/25 10:02 Pulse Rate 91 04/21/25 10:02 Respiratory Rate 20 04/21/25 10:02 Blood Pressure 107/71 04/21/25 10:02 Pulse Oximetry 99 04/21/25 10:02 Oxygen Delivery Room Air 04/21/25 10:02 Temperature 98.6 F 04/21/25 13:47 Pulse Rate 73 04/21/25 13:47 Respiratory Rate 20 04/21/25 13:47 Blood Pressure 130/76 04/21/25 13:47 Pulse Oximetry 95 04/21/25 13:47 Oxygen Delivery Room Air 04/21/25 13:47 MDM [facility] Narrative Medical decision making narrative: Plan: Labs, EKG, IV fluids, imaging, IV PPI, transfusion as needed, reassess Differential Diagnosis Differential Diagnosis: GI bleed, arrhythmia, anemia, hemorrhage, PE, metabolic abnormality, other Medical Records I have reviewed the following patient records and this information was taken into consideration when formulating the assessment and plan.: previous labs Lab Data [facility] Lab Attestation statement: I personally reviewed the patient's lab results. 04/21/25 10:26 04/21/25 10:26 Labs: Lab Results 04/21/25 Range/Units 10:26 WBC 15.7 H (4.8-10.8) K/mm3 RBC 3.25 L (4.70-6.10) M/mm3 Hgb 9.0 L (12.4-15.3) g/dL Hct 28.1 L (37.0-46.0) % MCV 86.5 (78.0-102.0) fL MCH 27.7 (27.0-31.0) pg MCHC 32.0 (32-36) g/dL RDW 13.2 (11.6-14.4) % Plt Count 264 (150-420) K/mm3 MPV 9.6 (8.7-11.0) fl Immature Gran % (Auto) 2.0 H (0.0-0.0) % Neut % (Auto) 78.9 H (50.0-70.0) % Lymph % (Auto) 9.2 L (18.0-42.0) % Sutter % (Auto) 8.7 (2.0-11.0) % Eos % (Auto) 1.0 (1.0-6.0) % Baso % (Auto) 0.2 (0.0-1.0) % Lymph # (Auto) 1.44 (1.10-4.50) K/mm3 Sutter # (Auto) 1.37 H (0.10-0.90) K/mm3 Eos # (Auto) 0.16 (0.02-0.50) K/mm3 Baso # (Auto) 0.03 (0.00-0.10) K/mm3 Abs Immat Gran (auto) 0.32 H (0.00-0.00) K/mm3 Absolute Neuts (auto) 12.41 H (1.70-7.20) K/mm3 Absolute Nucleated RBC 0.00 (0.00-0.00) K/mm3 Nucleated RBC % 0.0 (0-0.0) % PT 10.8 (9.50-12.1) Seconds INR 1.0 APTT 24.1 (23.9-30.70) Sec Sodium 140 (137-145) mmol/L Potassium 4.2 (3.4-5.0) mmol/L Chloride 107 (98-107) mmol/L Carbon Dioxide 25 (22-30) mmol/L Anion Gap 8 (4-12) mmol/L BUN 30 H (9-20) mg/dL Creatinine 1.11 (0.7-1.3) mg/dL Estim Creat Clear Calc 62 ml/min Estimated GFR > 60 (59 - ) Glucose 141 H (65-110) mg/dL Calculated Osmolality 298 H (285-295) mOsm/kg Calcium 8.5 (8.4-10.2) mg/dL Magnesium 2.1 (1.6-2.3) mg/dL Total Bilirubin 0.6 (0.2-1.3) mg/dL AST 24 (17-59) U/L ALT 22 (6-50) U/L Alkaline Phosphatase 87 (38-126) U/L Total Protein 6.1 L (6.3-8.2) g/dL Albumin 3.5 (3.5-5.1) g/dL Lipase 735 H (23-300) U/L Blood Type O Positive Antibody Screen Negative Imaging Data Radiologist's impression: ITS Impressions Chest X-Ray 04/21/25 11:13 IMPRESSION: 1. No acute cardiopulmonary findings given portable technique. Chest/Abdomen/Pelvis CTA 04/21/25 11:39 IMPRESSION: CHEST- 1. No acute cardiopulmonary findings. ABDOMEN/PELVIS- 1. No acute abdominopelvic findings. ECG Data EKG #1: Attestation: I personally reviewed and interpreted this ECG as follows: ECG completion date: 04/21/25 ECG completion time: 10:20 Prior ECG tracings: available for review Interpretation: Sinus rhythm, rate 81, normal axis, no ST segment elevations or T-wave inversions concerning for ischemia, normal intervals with QTC of 407. Discharge Plan Discharge Clinical Impression: Anemia Qualifiers: Anemia type: other cause Other causes of anemia: other cause, not classified Qualified Code(s): D64.89 - Other specified anemias Hematemesis Qualifiers: Nausea presence: without nausea Qualified Code(s): K92.0 - Hematemesis Patient Disposition: Acute Care Hospital Condition: Stable Patient Language: Mongolian Prescriptions: No Action pravastatin 40 mg tablet 40 mg PO DAILY amlodipine 5 mg tablet 5 mg PO DAILY ascorbic acid (vitamin C) 1,000 mg Tablet 1,000 mg PO DAILY vitamin E 400 unit Tablet 400 unit PO DAILY vitamin B complex Capsule 1 cap PO DAILY Glucosamine Chondroitin 550-30-1 mg Capsule 1 cap PO DAILY Follow-up/Referrals: Gregorio Vásquez MD [Primary Care Provider, Internal Medicine]
[2025-04-21 10:31] LABS: Hematocrit 28.1 % (37.0-46.0); Hemoglobin 9.0 g/dL (12.4-15.3); Immature Granulocyte Percent A 2.0 % (0.0-0.0); Lymphocytes Absolute Auto 1.44 K/mm3 (1.10-4.50); Mean Corpuscular HGB Conc 32.0 g/dL (32-36); Mean Corpuscular Hemoglobin 27.7 pg (27.0-31.0); Mean Corpuscular Volume 86.5 fL (78.0-102.0); Nucleated Red Blood Cells Absolute Auto 0.00 K/mm3 (0.00-0.00); Nucleated Red Blood Cells Perc 0.0 % (0-0.0); Platelet Count Result 264 K/mm3 (150-420); Red Blood Count 3.25 M/mm3 (4.70-6.10); White Blood Count 15.7 K/mm3 (4.8-10.8)
[2025-04-21] MEDS: PANTOPRAZOLE SODIUM IV 40 MG VIAL 80 MG IV PUSH (10:37)
[2025-04-21] MEDS: SODIUM CHLORIDE 0.9% IV 1,000 ML 999 ML IV CONT (10:37)
[2025-04-21 10:42] LABS: Alanine Aminotransferase 22 U/L (6-50); Albumin Level 3.5 g/dL (3.5-5.1); Alkaline Phosphatase 87 U/L (38-126); Anion Gap 8 mmol/L (4-12); Aspartate Amino Transferase 24 U/L (17-59); Bilirubin,Total 0.6 mg/dL (0.2-1.3); Blood Urea Nitrogen 30 mg/dL (9-20); Calcium 8.5 mg/dL (8.4-10.2); Carbon Dioxide 25 mmol/L (22-30); Chloride 107 mmol/L (98-107); Estimated CRCL calculation 62 ml/min; Estimated Glomerular Filt Rate > 60; Glucose 141 mg/dL (65-110); Lipase 735 U/L (23-300); Magnesium 2.1 mg/dL (1.6-2.3); Osmolality Calculated 298 mOsm/kg (285-295); Potassium 4.2 mmol/L (3.4-5.0); Sodium 140 mmol/L (137-145); Total Protein 6.1 g/dL (6.3-8.2)
[2025-04-21 10:44] LABS: INR 1.0; Partial Thromboplastin Time 24.1 Sec (23.9-30.70); Prothrombin Time 10.8 Seconds (9.50-12.1)
--- NOTE | 2025-04-21 10:47 | PC.NURSE ---
pt to xray department via stretcher with jill.
--- OUTSIDE RECORDS SUMMARY | 2025-04-21 10:47 | XMS_ITS | Clinical Summary ---
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 Not on file Not on file Not o n file Last Filed Vital Signs Vital Sign Reading Time Taken Comments Blood Pressure 132/80 01/23/2021 1:14 PM CDT Pulse 110 01/23/2021 1:14 PM CDT Temperature - - Respiratory Rate 18 01/23/2021 1:14 PM CDT Oxygen Saturation 94% 03/03/2018 1:44 PM ACTUARIAL INTERN Inhaled Oxygen Concentration - - Weight 106.1 [...] patient's age to complete this topic Insurance [facility] MEDICARE MED REPLACE [facility] MEDICARE Care Teams Passenger Agent Relationship Specialty Start Date End Date Gregorio Vsáquez MD [address] [place] [id number] PCP - General INTERNAL MEDICINE 03/02/18 David Bain MD [address] [place] [phone] [place] [employer] Operator CARDIOVASCULAR DISEASE 03/02/18 Helen Cazares APRN, ADJUNCT PHYSICAL EDUCATION INSTRUCTOR-C [address] [place] [address] [id number] [place] [address] [place] Reflow Operator NURSE PRACTITIONER 12/25/20
--- NOTE | 2025-04-21 11:07 | PC.NURSE ---
pt returns from xray, iv site right ac intact, iv fluids infusing. call kitchen in reach
--- NOTE | 2025-04-21 11:52 | PC.NURSE ---
dr hastings in room with pt and family discussing plan of care
== END 2025-04-21 14:30 | disposition short-term general hospital (02) ==
PROVIDERS: Emergency Provider Preventive Medicine Aerospace Medicine; PCP Internal Medicine
DX: D64.89 Other specified anemias (principal); K92.0 Hematemesis; I10 Essential (primary) hypertension; E78.5 Hyperlipidemia, unspecified
CPT/HCPCS: 36415; 71045; 71275; 74174; 80053; 83690; 83735; 85025; 85610; 85730; 86850; 86900; 86901; 93005; 96361; 96374; 99285; J2470; J7030; Q9967

== ENCOUNTER 2025-04-21 15:15 | Inpatient (IN) | payer MEDICARE, SELFPAY ==
[2025-04-21 15:15] VITALS: BP 121/65; PULSE 75; RESP 16; TEMP 36.4; O2SAT 98
--- OUTSIDE RECORDS SUMMARY | 2025-04-21 15:46 | XMS_ITS | Clinical Summary ---
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 Not on file Not on file Not o n file Last Filed Vital Signs Vital Sign Reading Time Taken Comments Blood Pressure 132/80 01/23/2021 1:14 PM CDT Pulse 110 01/23/2021 1:14 PM CDT Temperature - - Respiratory Rate 18 01/23/2021 1:14 PM CDT Oxygen Saturation 94% 03/03/2018 1:44 PM LENS BLANK GAUGER Inhaled Oxygen Concentration - - Weight 106.1 [...] patient's age to complete this topic Insurance [facility] MEDICARE MED REPLACE [facility] MEDICARE Care Teams Personnel Consultant Relationship Specialty Start Date End Date Gregorio Vásquez MD [address] [place] [id number] PCP - General INTERNAL MEDICINE 03/02/18 David Bain MD [address] [place] [phone] [place] Folding Machine Operator CARDIOVASCULAR DISEASE 03/02/18 Helen Cazares APRN, CILNICAL SCIENTIST-C [address] [place] [address] [id number] [place] [address] [place] [employer] Folding Machine Operator NURSE PRACTITIONER 12/25/20
[2025-04-21 15:48] VITALS: BMI 30.3
--- NOTE | 2025-04-21 15:53 | ADMGEN ---
This patient, Azam Antony, was admitted to [facility] Surg Room 304-01. Patient/family oriented to hospital policies and general routines including ID bracelet, bed and alarms, visiting hours, pain management, procedures, bathroom and other care routines, personal items, smoking policy, room service/diet, and visiting hours. Information on how to activate the Rapid Response Team has been discussed. Patient/Family are encouraged to report perceived risks to care and to ask questions if they do not understand what they are told or what they should do. Report received to Blanca TIM from [facility]
--- NOTE | 2025-04-21 18:31 | PM.IMHP2 ---
H&P: HPI History of Present Illness Date/Time: 04/21/25 18:31 Chief Complaint: GI bleed Narrative: 74 year old male with past medical history of HTN, hyperlipidemia presents to the [place] ED on 04/21/25 with complaints of nausea, vomiting and lightheadedness. Patient is s/p left hip replacement 11 days ago at [facility] in [place], [place]. The patient states that this morning he felt nauseous and had 1 episode of reportedly large black appearing vomitus and felt lightheaded while standing in the shower. He denies loss of consciousness but states he ?quit breathing.? Denies chest pain, abdominal pain. Patient has been taking 1 tramadol daily for his postoperative pain and states he has been constipated and nauseous since his surgery 11 days ago. He had 1 bowel movement today that appeared normal and 1 normal-appearing bowel movement 3 days ago and 1 prior episode of black appearing vomitus occurring on 04/17. He was discharged with 81 mg of aspirin twice a day. No complaints of melena. He complains of moderate left hip pain but has no other complaints at this time. Patient was transferred to [facility] for GI evaluation. ED course: Initial vital signs 107/71, HR 91, respirations 20, afebrile and 99% on room air. Leukocytosis with WBC 15.7. Hemoglobin 9, platelets 264. Hemoglobin in May 2024 of 13.9. BUN 30, lipase 735. EKG reads normal sinus rhythm with no concern for ischemia. Chest x-ray with no acute cardiopulmonary process. CT angio chest abdomen pelvis negative for PE or acute intra-abdominal process. Review of Systems Review of Systems: All systems reviewed & are unremarkable except as noted in HPI and below PMFSH Past Medical History Medical History Dyslipidemia Hypertension Surgical History Surgical History History of carpal tunnel release History of left hip replacement History of right hip replacement Social History Social History Smoking status: Never smoker Alcohol intake: former Drinks per week: 0 Substance use: never Substance use type: does not use Last use: Drank couple drinks on [employer] Lack of Transportation: No Lack of Food: Never True Current Housing: I Have Housing Concerned About Future Housing: No Difficulty Paying Gas/Electric Bills: No Difficulty Paying for Meds: No Currently Unemployed: No Education: High School Diploma/GED Difficulty w/ Childcare or Family Care: No Living arrangements: with family Spiritual care concerns: No Meds Home Medications and Allergies Home Medications ?Medication ?Instructions ?Recorded ?Confirmed ?Type pravastatin 40 mg tablet 40 mg PO DAILY 05/13/20 04/21/25 History amlodipine 5 mg tablet 5 mg PO DAILY 12/16/23 04/21/25 History ascorbic acid (vitamin C) 1,000 mg 1,000 mg PO DAILY 12/16/23 04/21/25 History tablet glucosamine sulf dipot 1 cap PO DAILY 12/16/23 04/21/25 History chlr,msm,chond 550 mg-C 30 mg-barry 1 mg capsule (Glucosamine Chondroitin) vitamin B complex 1 cap PO DAILY 12/16/23 04/21/25 History vitamin E 400 unit tablet 400 unit PO DAILY 12/16/23 04/21/25 History Allergies Allergy/AdvReac Type Severity Reaction Status Date / Time shellfish derived Allergy Hives Verified 04/21/25 15:55 Vital Signs Vital Signs - 24 hr 04/21/25 15:15 04/21/25 18:23 Temperature 97.6 F Pulse Rate 75 Respiratory Rate 16 Blood Pressure 121/65 Pulse Oximetry 98 Oxygen Delivery Room Air Exam Narrative: GENERAL: non-toxic appearing, in no acute distress. HEAD: Normocephalic, atraumatic. EYES: PERRLA. Conjunctivae clear. NOSE: Normal no drainage. THROAT: Pharynx clear, no exudate. NECK: ?Trachea midline. No adenopathy, no masses. RESPIRATORY: Airway patent, respirations nonlabored. CTA. CARDIOVASCULAR: Regular rate and rhythm GASTROINTESTINAL: ?Abdomen is soft and nontender. ?No organomegaly. ?Bowel sounds normal in all quadrants. GENITOURINARY: ?Defer MUSCULOSKELETAL: Moves all extremities. No gross deformities. ?Healing incision over left hip. No erythema and well approximated. SKIN: Warm, dry, normal color. NEURO: A&O X4. Speech clear PSYCHIATRIC: Normal interaction Quality VTE Prophylaxis VTE prophylaxis: mechanical ordered Assessment and Plan Assessment and plan (1) Hematemesis: Qualifiers: Nausea presence: without nausea Qualified Code(s): K92.0 - Hematemesis Code(s): K92.0 - Hematemesis Status: Acute Assessment and Plan: complaints of nausea, vomiting and lightheadedness with 1 episode of reportedly large black appearing vomitus earlier today. Patient states he had 1 smaller dark emesis earlier in the week. HGB 9. Hemoglobin in May 2024 of 13.9. - Pantoprazole 40 mg IVP q.12 hours - Gastroenterology consult - Hgb goal >7 - Regular Diet as tolerated - Plan for NPO on 04/23 at midnight for possible EGD - Anti-emetic p.r.n. (2) Dyslipidemia: Code(s): E78.5 - Hyperlipidemia, unspecified Status: Chronic Assessment and Plan: Continue pravastatin (3) Hypertension: Qualifiers: Hypertension type: primary hypertension Qualified Code(s): I10 - Essential (primary) hypertension Code(s): I10 - Essential (primary) hypertension Status: Chronic Assessment and Plan: Continue amlodipine Prior Studies I have reviewed the following patient records and this information was taken into consideration when formulating the assessment and plan.: previous labs, previous ER visits, previous hospitalizations and previous clinic visits Time Spent with Patient Time with patient: 45 - 74 minutes Hospitalist MIPS Advance Care Plan I have confirmed that the patient's Advanced Care Plan is present, code status is documented, or surrogate decision maker is listed in patient medical record.: Yes Medication Reconciliation I have utilized all available resources to obtain, update and review the patients current medications (includes all prescriptions, OTC, herbals, cannabis, and nutritional supplements).: Yes
[2025-04-21 21:48] VITALS: BP 115/58; PULSE 94; RESP 20; TEMP 37; O2SAT 96
[2025-04-21] MEDS: MELATONIN 5 MG TABLET PO (22:18)
[2025-04-22] MEDS: PANTOPRAZOLE SODIUM IV 40 MG VIAL IV PUSH ×3 (00:25→20:21)
[2025-04-22 00:41] LABS: Hematocrit 24.7 % (42.0-52.0); Hemoglobin 7.9 g/dL (14.0-18.0)
[2025-04-22 06:00] VITALS: BP 126/64; PULSE 111; RESP 18; TEMP 36.8; O2SAT 96
[2025-04-22 06:45] LABS: Hematocrit 25.3 % (42.0-52.0); Hemoglobin 8.1 g/dL (14.0-18.0); Immature Granulocyte Percent A 1.4 % (0-0.5); Lymphocytes Absolute Auto 1.99 K/mm3 (0.9-3.2); Mean Corpuscular HGB Conc 32.0 g/dl (32-36); Mean Corpuscular Hemoglobin 27.7 pg (26-34); Mean Corpuscular Volume 86.6 fl (80-100); Nucleated Red Blood Cells Absolute Auto 0.000 K/mm3 (0.0-0.012); Nucleated Red Blood Cells Perc 0.0 % (0.0-0.2); Platelet Count Result 263 k/mm3 (150-375); Red Blood Count 2.92 M/mm3 (4.6-6.20); White Blood Count 15.9 K/mm3 (4.5-10.0)
[2025-04-22 07:04] LABS: Anion Gap 4 mmol/L (4-12); Blood Urea Nitrogen 29 mg/dL (9-20); Calcium 8.6 mg/dL (8.4-10.2); Carbon Dioxide 26 mmol/L (22-30); Chloride 108 mmol/L (98-107); Estimated CRCL calculation 64 ml/min; Estimated Glomerular Filt Rate > 60; Glucose 88 mg/dL (65-110); Potassium 4.1 mmol/L (3.4-5.0); Sodium 138 mmol/L (137-145)
--- NOTE | 2025-04-22 07:54 | P.PNIM_ITS ---
Assessment and Plan Assessment and Plan (1) Upper GI bleed: Code(s): K92.2 - Gastrointestinal hemorrhage, unspecified Status: Acute Assessment and Plan: - with multiple episodes of coffee-ground emesis and melena - BP stable, mildly tachycardic, hemoglobin 8.1. Asymptomatic this a.m.. - Trend H&H q.6 hours. Transfuse hemoglobin less than 7 or hemodynamic instability - Continue IV Protonix b.i.d. - Stop aspirin - GI consulted, planning for EGD tomorrow a.m.. Continue full liquid diet. NPO at midnight. (2) Acute blood loss anemia: Code(s): D62 - Acute posthemorrhagic anemia Status: Acute Assessment and Plan: - Hgb 13.9 05/2024. Hgb 9.0 on admit, trended down to 8.1. - monitor H&H q6H - transfuse Hgb <7 (3) Dyslipidemia: Code(s): E78.5 - Hyperlipidemia, unspecified Status: Chronic Assessment and Plan: -Continue pravastatin (4) Hypertension: Qualifiers: Hypertension type: primary hypertension Qualified Code(s): I10 - Essential (primary) hypertension Code(s): I10 - Essential (primary) hypertension Status: Chronic Assessment and Plan: -Continue amlodipine Plan DVT prophylaxis: ambulation, SCDs Code status: full code Dispo: likely home in 2-3 days Medical Record Review I have reviewed the following patient records and this information was taken into consideration when formulating the assessment and plan.: previous labs Subjective Date/time seen: 04/22/25 07:54 Interval history: Patient seen and examined at bedside. No further nausea or vomiting. Did have a black tardy stool this a.m.. Denies lightheadedness, dizziness, chest pain or shortness of breath. Complaining of discomfort in his left hip and ankle and requesting to ambulate more frequently. Review of Systems Review of Systems: All systems reviewed & are unremarkable except as noted in HPI and below Exam Narrative: General: NAD Eyes: EOMI ENT: neck supple Cardiovascular: Regular rate and rhythm Respiratory: Clear to auscultation, respirations even and unlabored on RA Gastrointestinal: Soft, non tender Genitourinary: no suprapubic tenderness Musculoskeletal: No edema, left hip incision clean dry and intact without surrounding erythema or drainage. Skin: warm, dry Neuro: Alert. Psych: Mood appropriate Objective Data Vital Signs Vital Signs: Vital Signs - 24 hr 04/21/25 15:15 04/21/25 18:23 04/21/25 20:00 Temperature 97.6 F Pulse Rate 75 Respiratory Rate 16 Blood Pressure 121/65 Pulse Oximetry 98 Oxygen Delivery Room Air Room Air 04/21/25 21:48 04/22/25 06:00 Temperature 98.6 F 98.2 F Pulse Rate 94 111 H Respiratory Rate 20 18 Blood Pressure 115/58 L 126/64 Pulse Oximetry 96 96 Oxygen Delivery Intake/Output Intake/Output: Intake & Output 04/19/25 04/20/25 04/21/25 04/22/25 23:59 23:59 23:59 23:59 Intake Total 360 500 Balance 360 500 Meds/Results Medications: Active Medications Generic Name Dose Route Start Last Admin Trade Name Freq PRN Reason Stop Dose Admin Acetaminophen 650 mg 04/21/25 18:29 Acetaminophen 325 Mg Tablet PO Q6H PRN Mild Pain (1-3) or Fever Amlodipine Besylate 5 mg 04/22/25 09:00 Amlodipine Besylate 5 Mg Tablet PO DAILY [facility] Ascorbic Acid 1,000 mg 04/22/25 09:00 Ascorbic Acid 500 Mg Tablet PO DAILY [facility]1983 Ondansetron HCl 4 mg 04/21/25 18:28 Ondansetron Inj 4 Mg/2 Ml Vial IV PUSH Q6H PRN Nausea And Vomiting Pantoprazole Sodium 40 mg 04/21/25 23:30 04/22/25 00:25 Pantoprazole Sodium Iv 40 Mg Vial IV PUSH 40 mg Q12HR [facility]1983 Administration Pravastatin Sodium 40 mg 04/22/25 09:00 Pravastatin Sodium 20 Mg Tablet PO DAILY [facility] Tramadol HCl 50 mg 04/21/25 18:29 Tramadol Hcl (*Crx) 50 Mg Tablet PO Q6H PRN Pain Rated 4-6 Vitamin B Complex 1 cap 04/22/25 09:00 Vitamin B Complex Capsule PO DAILY [facility] Labs Labs: Laboratory Results - last 24 hr 04/22/25 04/22/25 00:23 05:53 WBC 15.9 H RBC 2.92 L Hgb 7.9 L 8.1 L Hct 24.7 L 25.3 L MCV 86.6 MCH 27.7 MCHC 32.0 RDW 13.6 Plt Count 263 MPV 10.1 Immature Gran % (Auto) 1.4 H Neut % (Auto) 75.2 H Lymph % (Auto) 12.5 L [place] % (Auto) 9.7 H Eos % (Auto) 0.9 Baso % (Auto) 0.3 Lymph # (Auto) 1.99 [place] # (Auto) 1.6 H Eos # (Auto) 0.2 Baso # (Auto) 0.0 Abs Immat Gran (auto) 0.22 H Absolute Neuts (auto) 12.0 H Absolute Nucleated RBC 0.000 Nucleated RBC % 0.0 Sodium 138 Potassium 4.1 Chloride 108 H Carbon Dioxide 26 Anion Gap 4 BUN 29 H Creatinine 1.07 Estim Creat Clear Calc 64 Estimated GFR > 60 Glucose 88 Calcium 8.6 Quality VTE Prophylaxis VTE prophylaxis: mechanical ordered
[2025-04-22] MEDS: PRAVASTATIN SODIUM 20 MG TABLET 40 MG PO (08:07)
[2025-04-22] MEDS: VITAMIN B COMPLEX CAPSULE 1 CAP PO (08:07)
[2025-04-22] MEDS: ASCORBIC ACID 500 MG TABLET 1000 MG PO (08:11)
[2025-04-22] MEDS: ACETAMINOPHEN 325 MG TABLET 650 MG PO ×3 (09:06→22:37)
[2025-04-22 10:09] LABS: Hematocrit 25.2 % (42.0-52.0); Hemoglobin 8.2 g/dL (14.0-18.0)
--- NOTE | 2025-04-22 10:50 | P.CONGI_ITS ---
Assessment and Plan Assessment and plan (1) Hematemesis: Qualifiers: Nausea presence: without nausea Qualified Code(s): K92.0 - Hematemesis Code(s): K92.0 - Hematemesis Status: Acute Plan Hi 74-year-old male who recently had a surgery for his hip. Patient had upper GI bleed. Differential diagnosis would include total of peptic ulcer disease versus esophagitis versus gastrointestinal AVMs. Plan 1. Protonix 40 mg, PO, daily. 2. Schedule upper endoscopy in the morning. Indications, benefits and complications of the procedure were discussed in detail with him. He appears to understand the procedure and agreed to proceed. 3. Other CBC for tomorrow morning. 4. Full liquid diet. 5. NPO after midnight. GI Consult Note Consult date/time: 04/22/25 10:50 Reason for consult: Upper GI bleed. HPI: Azam Antony is a 74 year old male who had hip surgery about 10 days ago. Patient was discharged home on aspirin. For the last 2 days patient has been having multiple episodes of vomiting. He vomited dark material. His hemoglobin level today is 8.1. Patient was told by the nurse that her stools were positive for occult blood. Patient denies abdominal pain. No hematochezia. His appetite has been stable and there is no documentation about any weight loss. Review of Systems 2 Review of Systems: All 11 of her symptoms are negative except the ones mentioned in the H&P. Constitutional: Constitutional: Reports as per HPI (No fever or chills. No abdominal pain. No chills.) PMFSH Past Medical History Medical History Dyslipidemia Hypertension Surgical History Surgical History History of carpal tunnel release History of left hip replacement History of right hip replacement Social History Social History Smoking status: Never smoker Alcohol intake: former Drinks per week: 0 Substance use: never Substance use type: does not use Last use: Drank couple drinks on [place] Lack of Transportation: No Lack of Food: Never True Current Housing: I Have Housing Concerned About Future Housing: No Difficulty Paying Gas/Electric Bills: No Difficulty Paying for Meds: No Currently Unemployed: No Education: High School Diploma/GED Difficulty w/ Childcare or Family Care: No Living arrangements: with family Spiritual care concerns: No Meds Home Medications and Allergies Home Medications ?Medication ?Instructions ?Recorded ?Confirmed ?Type pravastatin 40 mg tablet 40 mg PO DAILY 05/13/2003/27 History amlodipine 5 mg tablet 5 mg PO DAILY 12/16/2304/21 History ascorbic acid (vitamin C) 1,000 mg 1,000 mg PO DAILY 0 12/16/23 04/21/25 History tablet glucosamine sulf dipot 1 cap PO DAILY 12/16/2303/27 History chlr,msm,chond 550 mg-C 30 mg-barry 1 mg capsule (Glucosamine Chondroitin) vitamin B complex 1 cap PO DAILY 12/16/2303/27 History vitamin E 400 unit tablet 400 unit PO DAILY 12/16/23 1 06/22/24 History Allergies Allergy/AdvReac Type Severity Reaction Status Date / Time shellfish derived Allergy Hives Verified 04/21/25 15:55 Vital Signs Vital Signs - 24 hr 04/21/25 15:15 04/21/25 18:23 04/21/25 20:00 Temperature 97.6 F Pulse Rate 75 Respiratory Rate 16 Blood Pressure 121/65 Pulse Oximetry 98 Oxygen Delivery Room Air Room Air 04/21/25 21:48 04/22/25 06:00 Temperature 98.6 F 98.2 F Pulse Rate 94 111 H Respiratory Rate 20 18 Blood Pressure 115/58 L 126/64 Pulse Oximetry 96 96 Oxygen Delivery Exam 2 Const: General: comfortable HENMT: Face/Nose/Sinus: Normal nares present Eyes: Sclera: sclerae normal Neck: Neck: supple Chest: Other: Clear to auscultation. Resp: Auscultation: clear to auscultation bilaterally Cardio: Rate: regular rate GI: GI Palp: Yes Soft to palpation (Mildly tender to palpation, with some present.) Extrem: General: normal to inspection Psych: Affect: normal affect Results Labs 04/22/25 10:03 04/22/25 05:53 Labs: Short CBC 04/22/25 04/22/25 04/22/25 Range/Units 00:23 05:53 10:03 WBC 15.9 H (4.5-10.0) K/mm3 Hgb 7.9 L 8.1 L 8.2 L (14.0-18.0) g/dL Hct 24.7 L 25.3 L 25.2 L (42.0-52.0) % Plt Count 263 (150-375) k/mm3 [facility] 04/22/25 05:53 Sodium 138 Potassium 4.1 Chloride 108 H Carbon Dioxide 26 BUN 29 H Creatinine 1.07 Glucose 88 Calcium 8.6
--- NOTE | 2025-04-22 12:08 | ECG_ITS ---
Test Date: 2025-04-22 13:25:26 Measurements Intervals [place] Rate: 105 P: -10 FL: 160 QRS: -28 QRSD: 94 T: 5 QT: 333 QTc: 441 Interpretive Statements SINUS TACHYCARDIA BORDERLINE AV CONDUCTION DELAY DELAYED PRECORDIAL R/S TRANSITION MINIMAL Q WAVES- HIGH LATERAL LEADS BASELINE ARTIFACT- I, III, AVR, AVL, AVF BORDERLINE ECG Compared to ECG 04/21/2025 10:20:32 HEART RATE HAS INCREASED Electronically Signed On 04-22-2025 20:29:00 REGULATORY AFFAIRS SPEC by Shen Dao D.O.
[2025-04-22 14:00] VITALS: BP 118/68; PULSE 113; RESP 18; TEMP 36.7; O2SAT 96
[2025-04-22 16:03] LABS: Hematocrit 23.5 % (42.0-52.0); Hemoglobin 7.8 g/dL (14.0-18.0)
[2025-04-22 21:00] VITALS: BP 116/57; PULSE 97; RESP 20; TEMP 36.4; O2SAT 98
[2025-04-22 21:39] LABS: Hematocrit 23.5 % (42.0-52.0); Hemoglobin 7.5 g/dL (14.0-18.0)
[2025-04-23] VITALS (13 sets, daily range): BP systolic 91–142; BP diastolic 52–93; PULSE 50–116; RESP 14–21; TEMP 36.2–37.3; O2SAT 95–99
[2025-04-23] MEDS: ACETAMINOPHEN 325 MG TABLET 650 MG PO ×2 (05:11→20:43)
[2025-04-23 06:08] LABS: Hematocrit 21.5 % (42.0-52.0); Immature Granulocyte Percent A 1.5 % (0-0.5); Lymphocytes Absolute Auto 1.42 K/mm3 (0.9-3.2); Mean Corpuscular HGB Conc 31.6 g/dl (32-36); Mean Corpuscular Hemoglobin 28.1 pg (26-34); Mean Corpuscular Volume 88.8 fl (80-100); Nucleated Red Blood Cells Absolute Auto 0.000 K/mm3 (0.0-0.012); Nucleated Red Blood Cells Perc 0.0 % (0.0-0.2); Platelet Count Result 229 k/mm3 (150-375); Red Blood Count 2.42 M/mm3 (4.6-6.20); White Blood Count 12.0 K/mm3 (4.5-10.0)
[2025-04-23 06:21] LABS: Anion Gap 0 mmol/L (4-12); Blood Urea Nitrogen 23 mg/dL (9-20); Calcium 8.0 mg/dL (8.4-10.2); Carbon Dioxide 29 mmol/L (22-30); Chloride 107 mmol/L (98-107); Estimated CRCL calculation 68 ml/min; Estimated Glomerular Filt Rate > 60; Glucose 95 mg/dL (65-110); Potassium 3.9 mmol/L (3.4-5.0); Sodium 136 mmol/L (137-145)
[2025-04-23 07:21] LABS: Hemoglobin 6.8 g/dL (14.0-18.0)
--- NOTE | 2025-04-23 07:55 | P.PNIM_ITS ---
Assessment and Plan Assessment and Plan (1) Upper GI bleed: Code(s): K92.2 - Gastrointestinal hemorrhage, unspecified Status: Acute Assessment and Plan: - with multiple episodes of coffee-ground emesis and melena - BP stable, mildly tachycardic, hemoglobin 8.1. Asymptomatic this a.m.. - Trend H&H q8 hours. Transfuse hemoglobin less than 7 or hemodynamic instability - EGD with bleeding duodenal ulcer, treated with epinephrine and clips placed - Continue IV Protonix b.i.d. - Stop aspirin - GI following - monitor H&H q8h, continue IV protonix BID, consider CT angiogram with emmbolization if needed (2) Acute blood loss anemia: Code(s): D62 - Acute posthemorrhagic anemia Status: Acute Assessment and Plan: - Hgb 13.9 05/2024. Hgb 9.0 on admit, trended down to 6.8 - 1u PRBCs ordered - monitor H&H q6H - transfuse Hgb <7 (3) Dyslipidemia: Code(s): E78.5 - Hyperlipidemia, unspecified Status: Chronic Assessment and Plan: -Continue pravastatin (4) Hypertension: Qualifiers: Hypertension type: primary hypertension Qualified Code(s): I10 - Essential (primary) hypertension Code(s): I10 - Essential (primary) hypertension Status: Chronic Assessment and Plan: -hold due to low BP Plan DVT prophylaxis: ambulation, SCDs Code status: full code Dispo: likely home in 2-3 days Medical Record Review I have reviewed the following patient records and this information was taken into consideration when formulating the assessment and plan.: previous labs Subjective Date/time seen: 04/23/25 07:55 Interval history: Patient seen and examined at bedside. Had additional black, tarry stool yesterday, none today. No abdominal pain. Did have lightheadedness and tachycardia this AM. Review of Systems Review of Systems: All systems reviewed & are unremarkable except as noted in HPI and below Exam Narrative: General: NAD, generalized pallor Eyes: EOMI ENT: neck supple Cardiovascular: Regular rate and rhythm Respiratory: Clear to auscultation, respirations even and unlabored on RA Gastrointestinal: Soft, non tender Genitourinary: no suprapubic tenderness Musculoskeletal: No edema Skin: warm, dry Neuro: Alert. Psych: Mood appropriate Objective Data Vital Signs Vital Signs: Vital Signs - 24 hr 04/22/25 14:00 04/22/25 21:00 04/23/25 06:00 Temperature 98.0 F 97.5 F L 97.4 F L Pulse Rate 113 H 97 113 H Respiratory Rate 18 20 20 Blood Pressure 118/68 116/57 L 114/52 L Pulse Oximetry 96 98 99 Intake/Output Intake/Output: Intake & Output 04/20/25 04/21/25 04/22/25 04/23/25 23:59 23:59 23:59 23:59 Intake Total 360 740 Balance 360 740 Meds/Results Medications: Active Medications Generic Name Dose Route Start Last Admin Trade Name Freq PRN Reason Stop Dose Admin Acetaminophen 650 mg 04/21/25 18:29 04/23/25 05:11 Acetaminophen 325 Mg Tablet PO 650 mg Q6H PRN Administration Mild Pain (1-3) or Fever Amlodipine Besylate 5 mg 04/22/25 09:00 04/22/25 08:07 Amlodipine Besylate 5 Mg Tablet PO 5 mg DAILY [facility] Administration Ascorbic Acid 1,000 mg 04/22/25 09:00 04/22/25 08:11 Ascorbic Acid 500 Mg Tablet PO 1,000 mg DAILY [facility] Administration Sodium Chloride 250 mls @ 30 mls/hr 04/23/25 07:31 Normal Saline Iv IV CONT 04/23/25 15:50 .Q8H20M STA Ondansetron HCl 4 mg 04/21/25 18:28 Ondansetron Inj 4 Mg/2 Ml Vial IV PUSH Q6H PRN Nausea And Vomiting Pantoprazole Sodium 40 mg 04/21/25 23:30 04/22/25 20:21 Pantoprazole Sodium Iv 40 Mg Vial IV PUSH 40 mg Q12HR [place] Administration Pravastatin Sodium 40 mg 04/22/25 09:00 04/22/25 08:07 Pravastatin Sodium 20 Mg Tablet PO 40 mg DAILY [place] Administration Tramadol HCl 50 mg 04/21/25 18:29 Tramadol Hcl (*Crx) 50 Mg Tablet PO Q6H PRN Pain Rated 4-6 Vitamin B Complex 1 cap 04/22/25 09:00 04/22/25 08:07 Vitamin B Complex Capsule PO 1 cap DAILY [place] Administration Labs Labs: Laboratory Results - last 24 hr 04/22/25 04/22/25 04/22/25 10:03 15:58 21:33 WBC RBC Hgb 8.2 L 7.8 L 7.5 L Hct 25.2 L 23.5 L 23.5 L MCV MCH MCHC RDW Plt Count MPV Immature Gran % (Auto) Neut % (Auto) Lymph % (Auto) [place] % (Auto) Eos % (Auto) Baso % (Auto) Lymph # (Auto) [place] # (Auto) Eos # (Auto) Baso # (Auto) Abs Immat Gran (auto) Absolute Neuts (auto) Absolute Nucleated RBC Nucleated RBC % Sodium Potassium Chloride Carbon Dioxide Anion Gap BUN Creatinine Estim Creat Clear Calc Estimated GFR Glucose Calcium 04/23/25 04:55 WBC 12.0 H RBC 2.42 L Hgb 6.8 L* Hct 21.5 L MCV 88.8 MCH 28.1 MCHC 31.6 L RDW 13.5 Plt Count 229 MPV 9.7 Immature Gran % (Auto) 1.5 H Neut % (Auto) 74.8 H Lymph % (Auto) 11.9 L [place] % (Auto) 10.7 H Eos % (Auto) 0.9 Baso % (Auto) 0.2 Lymph # (Auto) 1.42 [place] # (Auto) 1.3 H Eos # (Auto) 0.1 Baso # (Auto) 0.0 Abs Immat Gran (auto) 0.18 H Absolute Neuts (auto) 8.9 H Absolute Nucleated RBC 0.000 Nucleated RBC % 0.0 Sodium 136 L Potassium 3.9 Chloride 107 Carbon Dioxide 29 Anion Gap 0 L BUN 23 H Creatinine 1.00 Estim Creat Clear Calc 68 Estimated GFR > 60 Glucose 95 Calcium 8.0 L Quality VTE Prophylaxis VTE prophylaxis: mechanical ordered
[2025-04-23] MEDS: PRAVASTATIN SODIUM 20 MG TABLET 40 MG PO (08:52)
[2025-04-23] MEDS: VITAMIN B COMPLEX CAPSULE 1 CAP PO (08:52)
[2025-04-23] MEDS: PANTOPRAZOLE SODIUM IV 40 MG VIAL IV PUSH ×2 (08:53→20:12)
[2025-04-23] MEDS: ASCORBIC ACID 500 MG TABLET 1000 MG PO (08:53)
[2025-04-23] MEDS: SODIUM CHLORIDE 0.9% IV 250 ML 30 ML IV CONT (09:21)
--- NOTE | 2025-04-23 11:17 | SUR.PREOP ---
1110 Patient brought down to GI lab with blood transfusing.
--- NOTE | 2025-04-23 11:21 | PC.NURSE ---
To GI Lab per [ ], IV [ ]. Report given to [Kecia about blood transfusion and never heard back about timing of when patient was leaving]. This nurse noticed pt was out of the room around 1120 without notice.
[2025-04-23] MEDS: LACTATED RINGERS 1,000 ML 150 ML IV CONT (11:29)
--- NOTE | 2025-04-23 11:42 | WPDANESEPPF ---
Anes - Initial Pre Proc Eval Procedure: Operation Date: 04/23/25 13:30 Proposed Procedures p Esophagogastroduodenoscopy - Maty Hinkle MD Date/Time: 04/23/25 11:42 Surgeon: Cheo Boyle MD Pre Op Diagnosis: GI Bleed Patient Data Age: 74 Gender: M Height: 1.83 m Weight: 101.5 kg Last Vital Signs Temp 36.5 C 04/23/25 11:15 Pulse 74 04/23/25 11:15 Resp 18 04/23/25 11:15 BP 112/60 04/23/25 11:15 Pulse Ox 98 04/23/25 11:15 O2 Del Method Room Air 04/23/25 11:15 Allergies Allergy/AdvReac Type Severity Reaction Status Date / Time shellfish derived Allergy Hives Verified 04/21/25 15:55 Home Medications ?Medication ?Instructions ?Recorded ?Confirmed ?Type pravastatin 40 mg tablet 40 mg PO DAILY 05/13/20 04/21/25 History amlodipine 5 mg tablet 5 mg PO DAILY 12/16/23 04/21/25 History ascorbic acid (vitamin C) 1,000 mg 1,000 mg PO DAILY 12/16/23 04/21/25 History tablet glucosamine sulf dipot 1 cap PO DAILY 12/16/23 04/21/25 History chlr,msm,chond 550 mg-C 30 mg-barry 1 mg capsule (Glucosamine Chondroitin) vitamin B complex 1 cap PO DAILY 12/16/23 04/21/25 History vitamin E 400 unit tablet 400 unit PO DAILY 12/16/23 04/21/25 History Laboratory Tests 04/22/25 04/22/25 04/22/25 10:02 15:58 21:33 WBC RBC Hgb 7.8 L g/dL 7.5 L g/dL (14.0-18.0) (14.0-18.0) Hct 23.5 L % 23.5 L % (42.0-52.0) (42.0-52.0) MCV MCH MCHC RDW Plt Count MPV Immature Gran % (Auto) Neut % (Auto) Lymph % (Auto) [place] % (Auto) Eos % (Auto) Baso % (Auto) Lymph # (Auto) [place] # (Auto) Eos # (Auto) Baso # (Auto) Abs Immat Gran (auto) Absolute Neuts (auto) Absolute Nucleated RBC Nucleated RBC % Sodium Potassium Chloride Carbon Dioxide Anion Gap BUN Creatinine Estim Creat Clear Calc Estimated GFR Glucose Calcium Blood Type O Positive Antibody Screen Negative Crossmatch See Detail 04/23/25 04:55 WBC 12.0 H K/mm3 (4.5-10.0) RBC 2.42 L M/mm3 (4.6-6.20) Hgb 6.8 L* g/dL (14.0-18.0) Hct 21.5 L % (42.0-52.0) MCV 88.8 fl (80-100) MCH 28.1 pg (26-34) MCHC 31.6 L g/dl (32-36) RDW 13.5 % (11.5-14.5) Plt Count 229 k/mm3 (150-375) MPV 9.7 fl (7.4-10.4) Immature Gran % (Auto) 1.5 H % (0-0.5) Neut % (Auto) 74.8 H % (45.5-73.1) Lymph % (Auto) 11.9 L % (18.3-44.2) [place] % (Auto) 10.7 H % (2.6-8.5) Eos % (Auto) 0.9 % (0-4.4) Baso % (Auto) 0.2 % (0.2-1.2) Lymph # (Auto) 1.42 K/mm3 (0.9-3.2) [place] # (Auto) 1.3 H K/mm3 (0.1-0.6) Eos # (Auto) 0.1 K/mm3 (0-0.3) Baso # (Auto) 0.0 K/mm3 (0.0-0.1) Abs Immat Gran (auto) 0.18 H K/mm3 (0.00-0.031) Absolute Neuts (auto) 8.9 H K/mm3 (1.3-6.7) Absolute Nucleated RBC 0.000 K/mm3 (0.0-0.012) Nucleated RBC % 0.0 % (0.0-0.2) Sodium 136 L mmol/L (137-145) Potassium 3.9 mmol/L (3.4-5.0) Chloride 107 mmol/L (98-107) Carbon Dioxide 29 mmol/L (22-30) Anion Gap 0 L mmol/L (4-12) BUN 23 H mg/dL (9-20) Creatinine 1.00 mg/dL (0.7-1.3) Estim Creat Clear Calc 68 ml/min Estimated GFR > 60 (59 - ) Glucose 95 mg/dL (65-110) Calcium 8.0 L mg/dL (8.4-10.2) Blood Type Antibody Screen Crossmatch Patient hx anesthesia problems: none Family hx anesthesia problems: none Results Review: All pre-operative results and documents have been reviewed as part of the pre-operative evaluation. PMFSH Past Medical History Medical History Dyslipidemia Hypertension Surgical History Surgical History History of carpal tunnel release History of left hip replacement History of right hip replacement Social History Social History Smoking status: Never smoker Alcohol intake: former Drinks per week: 0 Substance use: never Substance use type: does not use Last use: Drank couple drinks on [place] Lack of Transportation: No Lack of Food: Never True Current Housing: I Have Housing Concerned About Future Housing: No Difficulty Paying Gas/Electric Bills: No Difficulty Paying for Meds: No Currently Unemployed: No Education: High School Diploma/GED Difficulty w/ Childcare or Family Care: No Living arrangements: with family Spiritual care concerns: No Anes - Eval Final PreProcedure Day of Procedure 04/23/25 11:42 Patient weight: overweight Heart: regular rate and rhythm Lungs: clear to auscultation Airway: Mallampati scale class II Neurological: alert and oriented Last oral intake: >/= 8 hours ASA classification: III Emergent: no Anesthetic plan: proceed Anesthesia type and monitoring: general GIVS and standard monitoring Results Review: All pre-operative results and documents have been reviewed as part of the pre-operative evaluation. Informed Consent: The patient's anesthetic plan and its attendant risks and benefits were discussed with the patient/family/POA. Questions were solicited and answers provided to the satisfaction of the patient/family/POA.
[2025-04-23] MEDS: EPINEPHrine INJ 1 MG/10 ML SYRINGE XX (12:08)
[2025-04-23] MEDS: ONDANSETRON INJ 4 MG/2 ML VIAL IV PUSH (12:24)
--- NOTE | 2025-04-23 12:30 | PC.NURSE ---
Returned from GI Lab. Report received from [JED ].
--- NOTE | 2025-04-23 12:49 | SUR.PHASEII ---
Pt vomited in recovery, prn Zofran given. Pt complaining of upper abdomen pain. Dr. Hinkle notified. New orders received for Carafate.
[2025-04-23 14:04] LABS: Hematocrit 23.9 % (42.0-52.0); Hemoglobin 7.6 g/dL (14.0-18.0)
[2025-04-23 21:04] LABS: Hematocrit 21.7 % (42.0-52.0); Hemoglobin 7.0 g/dL (14.0-18.0)
[2025-04-24] VITALS (9 sets, daily range): BP systolic 112–139; BP diastolic 61–81; PULSE 101–110; RESP 16–18; TEMP 36.1–37.1; O2SAT 96–99
[2025-04-24] MEDS: ACETAMINOPHEN 325 MG TABLET 650 MG PO ×3 (03:29→18:01)
[2025-04-24 07:03] LABS: Anion Gap 1 mmol/L (4-12); Blood Urea Nitrogen 21 mg/dL (9-20); Calcium 8.3 mg/dL (8.4-10.2); Carbon Dioxide 27 mmol/L (22-30); Chloride 109 mmol/L (98-107); Estimated CRCL calculation 67 ml/min; Estimated Glomerular Filt Rate > 60; Glucose 89 mg/dL (65-110); Hematocrit 21.8 % (42.0-52.0); Hemoglobin 7.0 g/dL (14.0-18.0); Immature Granulocyte Percent A 1.2 % (0-0.5); Lymphocytes Absolute Auto 1.54 K/mm3 (0.9-3.2); Mean Corpuscular HGB Conc 32.1 g/dl (32-36); Mean Corpuscular Hemoglobin 28.8 pg (26-34); Mean Corpuscular Volume 89.7 fl (80-100); Nucleated Red Blood Cells Absolute Auto 0.000 K/mm3 (0.0-0.012); Nucleated Red Blood Cells Perc 0.0 % (0.0-0.2); Platelet Count Result 256 k/mm3 (150-375); Potassium 4.1 mmol/L (3.4-5.0); Red Blood Count 2.43 M/mm3 (4.6-6.20); Sodium 137 mmol/L (137-145); White Blood Count 13.0 K/mm3 (4.5-10.0)
--- NOTE | 2025-04-24 07:16 | P.PNIM_ITS ---
Assessment and Plan Assessment and Plan (1) Upper GI bleed: Code(s): K92.2 - Gastrointestinal hemorrhage, unspecified Status: Acute Assessment and Plan: - with multiple episodes of coffee-ground emesis and melena on admission - BP stable, mildly tachycardic - Trend H&H q8 hours. Transfuse hemoglobin less than 7 or hemodynamic instability - EGD with bleeding duodenal ulcer, treated with epinephrine and clips placed - Continue IV Protonix b.i.d. - Stop aspirin - GI following - monitor H&H q8h, continue IV protonix BID, consider CT angiogram with embolization if bleeding recurs (2) Acute blood loss anemia: Code(s): D62 - Acute posthemorrhagic anemia Status: Acute Assessment and Plan: - Hgb 13.9 05/2024. Hgb 9.0 on admit, trended down to 6.8 - 1u PRBCs transfused 04/23 - monitor H&H q6H - transfuse Hgb <7 - Hgb 7.0 04/24, patient with tachycardia - ordered additional 1u PRBCs (3) Dyslipidemia: Code(s): E78.5 - Hyperlipidemia, unspecified Status: Chronic Assessment and Plan: -Continue pravastatin (4) Hypertension: Qualifiers: Hypertension type: primary hypertension Qualified Code(s): I10 - Essential (primary) hypertension Code(s): I10 - Essential (primary) hypertension Status: Chronic Assessment and Plan: -hold due to low BP Plan DVT prophylaxis: ambulation, SCDs Code status: full code Dispo: likely home tomorrow if continues to improve Medical Record Review I have reviewed the following patient records and this information was taken into consideration when formulating the assessment and plan.: previous labs Subjective Date/time seen: 04/24/25 07:16 Interval history: Patient seen and examined at bedside. Reported an episode of black stool to GI this AM. Hgb 7.0 and patient is tachycardic. Denies lightheadedness, SOB or chest pain. Patient hoping to discharge soon. Review of Systems Review of Systems: All systems reviewed & are unremarkable except as noted in HPI and below Exam Narrative: General: NAD Eyes: EOMI ENT: neck supple Cardiovascular: Tachycardic, regular rhythm Respiratory: Clear to auscultation, respirations even and unlabored on RA Gastrointestinal: Soft, non tender Genitourinary: no suprapubic tenderness Musculoskeletal: No edema Skin: warm, dry Neuro: Alert. Psych: Mood appropriate Objective Data Vital Signs Vital Signs: Vital Signs - 24 hr 04/23/25 08:45 04/23/25 09:23 04/23/25 09:45 Temperature 97.1 F L 97.4 F L Pulse Rate 115 H 116 H 102 H Respiratory Rate 16 16 Blood Pressure 110/70 100/62 122/65 Pulse Oximetry 98 99 Oxygen Delivery Oxygen Flow Rate 04/23/25 10:45 04/23/25 11:15 04/23/25 12:13 Temperature 97.4 F L 97.7 F Pulse Rate 76 74 70 Respiratory Rate 14 18 21 H Blood Pressure 109/69 112/60 142/67 H Pulse Oximetry 98 98 95 Oxygen Delivery Room Air Nasal Cannula Oxygen Flow Rate 2 04/23/25 12:23 04/23/25 12:33 04/23/25 12:44 Temperature Pulse Rate 60 50 L 50 L Respiratory Rate 21 H 15 15 Blood Pressure 96/93 L 91/59 L 96/68 L Pulse Oximetry 95 95 99 Oxygen Delivery Nasal Cannula Room Air Room Air Oxygen Flow Rate 2 04/23/25 12:54 04/23/25 14:00 04/23/25 20:00 Temperature 97.3 F L Pulse Rate 62 53 L Respiratory Rate 20 16 Blood Pressure 113/64 124/62 Pulse Oximetry 99 95 Oxygen Delivery Room Air Room Air Oxygen Flow Rate 04/23/25 21:00 04/24/25 06:00 Temperature 99.1 F 97.7 F Pulse Rate 111 H 105 H Respiratory Rate 20 18 Blood Pressure 132/84 139/78 Pulse Oximetry 97 96 Oxygen Delivery Oxygen Flow Rate Intake/Output Intake/Output: Intake & Output 04/21/25 04/22/25 04/23/25 04/24/25 23:59 23:59 23:59 23:59 Intake Total 744 697 1626 500 Balance 904 089 0704 500 Meds/Results Medications: Active Medications Generic Name Dose Route Start Last Admin Trade Name Freq PRN Reason Stop Dose Admin Acetaminophen 650 mg 04/21/25 18:29 04/24/25 03:29 Acetaminophen 325 Mg Tablet PO 650 mg Q6H PRN Administration Mild Pain (1-3) or Fever Amlodipine Besylate 5 mg 04/22/25 09:00 04/23/25 08:50 Amlodipine Besylate 5 Mg Tablet PO Not Given On Hold: 04/23/25 12:50 DAILY LAMONTE Ascorbic Acid 1,000 mg 04/22/25 09:00 04/23/25 08:53 Ascorbic Acid 500 Mg Tablet PO 1,000 mg DAILY LAMONTE Administration Ondansetron HCl 4 mg 04/21/25 18:28 04/23/25 12:24 Ondansetron Inj 4 Mg/2 Ml Vial IV PUSH 4 mg Q6H PRN Administration Nausea And Vomiting Pantoprazole Sodium 40 mg 04/21/25 23:30 04/23/25 20:12 Pantoprazole Sodium Iv 40 Mg Vial IV PUSH 40 mg Q12HR LAMONTE Administration Pravastatin Sodium 40 mg 04/22/25 09:00 04/23/25 08:52 Pravastatin Sodium 20 Mg Tablet PO 40 mg DAILY LAMONTE Administration Sucralfate 1 gm 04/23/25 12:55 Sucralfate 1 Gm Tablet PO QID PRN abdominal pain Tramadol HCl 50 mg 04/21/25 18:29 Tramadol Hcl (*Crx) 50 Mg Tablet PO Q6H PRN Pain Rated 4-6 Vitamin B Complex 1 cap 04/22/25 09:00 04/23/25 08:52 Vitamin B Complex Capsule PO 1 cap DAILY LAMONTE Administration Labs Labs: Laboratory Results - last 24 hr 04/22/25 04/23/25 04/23/25 10:02 04:55 13:58 WBC 12.0 H RBC 2.42 L Hgb 6.8 L* 7.6 L Hct 21.5 L 23.9 L MCV 88.8 MCH 28.1 MCHC 31.6 L RDW 13.5 Plt Count 229 MPV 9.7 Immature Gran % (Auto) 1.5 H Neut % (Auto) 74.8 H Lymph % (Auto) 11.9 L [place] % (Auto) 10.7 H Eos % (Auto) 0.9 Baso % (Auto) 0.2 Lymph # (Auto) 1.42 [place] # (Auto) 1.3 H Eos # (Auto) 0.1 Baso # (Auto) 0.0 Abs Immat Gran (auto) 0.18 H Absolute Neuts (auto) 8.9 H Absolute Nucleated RBC 0.000 Nucleated RBC % 0.0 Sodium Potassium Chloride Carbon Dioxide Anion Gap BUN Creatinine Estim Creat Clear Calc Estimated GFR Glucose Calcium Blood Type O Positive Antibody Screen Negative Crossmatch See Detail 04/23/25 04/24/25 20:57 05:53 WBC 13.0 H RBC 2.43 L Hgb 7.0 L 7.0 L Hct 21.7 L 21.8 L MCV 89.7 MCH 28.8 MCHC 32.1 RDW 13.9 Plt Count 256 MPV 9.8 Immature Gran % (Auto) 1.2 H Neut % (Auto) 75.9 H Lymph % (Auto) 11.8 L [place] % (Auto) 10.0 H Eos % (Auto) 0.9 Baso % (Auto) 0.2 Lymph # (Auto) 1.54 [place] # (Auto) 1.3 H Eos # (Auto) 0.1 Baso # (Auto) 0.0 Abs Immat Gran (auto) 0.15 H Absolute Neuts (auto) 9.9 H Absolute Nucleated RBC 0.000 Nucleated RBC % 0.0 Sodium 137 Potassium 4.1 Chloride 109 H Carbon Dioxide 27 Anion Gap 1 L BUN 21 H Creatinine 1.02 Estim Creat Clear Calc 67 Estimated GFR > 60 Glucose 89 Calcium 8.3 L Blood Type Antibody Screen Crossmatch Quality VTE Prophylaxis VTE prophylaxis: mechanical ordered
[2025-04-24] MEDS: PRAVASTATIN SODIUM 20 MG TABLET 40 MG PO (09:20)
[2025-04-24] MEDS: ASCORBIC ACID 500 MG TABLET 1000 MG PO (09:21)
[2025-04-24] MEDS: VITAMIN B COMPLEX CAPSULE 1 CAP PO (09:21)
[2025-04-24] MEDS: PANTOPRAZOLE SODIUM IV 40 MG VIAL IV PUSH ×2 (09:22→21:00)
[2025-04-24] MEDS: SODIUM CHLORIDE 0.9% IV 250 ML 30 ML IV CONT (11:55)
--- NOTE | 2025-04-24 12:00 | WPDGIPROGNO ---
Progress Note: A&P Assessment and Plan (1) Acute duodenal ulcer with bleeding: Code(s): K26.0 - Acute duodenal ulcer with hemorrhage Status: Acute (2) Upper GI bleed: Code(s): K92.2 - Gastrointestinal hemorrhage, unspecified Status: Acute (3) Hematemesis: Qualifiers: Nausea presence: without nausea Qualified Code(s): K92.0 - Hematemesis Code(s): K92.0 - Hematemesis Status: Acute (4) Acute blood loss anemia: Code(s): D62 - Acute posthemorrhagic anemia Status: Acute Plan 1. Bleeding Duodenal Ulcer/ Acute Blood Loss Anemia: EGD on 04/23/2025 showed a bleeding duodenal ulcer which was treated with epinephrine and clips with no further bleeding after complete. He reports one black stool this morning with some red, but denies any further vomiting or abdominal pain. His hemoglobin remains low at 7.0 but stable compared to yesterday with Hgb 7.0- His BUN is down trending as well from admission. He is scheduled to receive another unit of packed red blood cells today due to anemia. He is tachycardiac but B/P is normal. Likley black stool is from previous bleeding that was controlled. - Agree with 1 unit of PRBC - Monitor H&H - Will advance diet - Continue IV Protonix 40 mg BID, switch to PO at discharge - Monitor Signs of active GI bleed, notify Dr. Hinkle. - Avoid NSAIDS Subjective Date/time seen: 04/24/25 0940 Interval history: This is a pleasant 74-year-old male with a past medical surgical history of recent hip surgery , for which he was discharged on aspirin. He presented to the ER on 04/23/2025 with complaints of two days of dark vomiting and dark stools for two weeks. EGD was found to have bleeding duodenal ulcer. He reports having a black stool with a small amount of red this morning. He is unsure if he had a bowel movement yesterday but believes he did. He denies any abdominal pain, nausea, or vomiting for several days. He denies any chest pain or shortness of breath, attributing his elevated heart rate to anxiety. He has been eating without pain or nausea. He denies taking any oral iron supplements. Review of Systems Constitutional: Constitutional: Denies headache(s) and Denies weakness Eyes: Eyes: Denies blurry vision ENT: Reports Normal hearing present, Denies headache(s) and Denies neck pain Cardiovascular: Cardiovascular: Denies chest pain and Denies dyspnea Respiratory: Respiratory: Denies dyspnea Gastrointestinal: Gastrointestinal: Reports no additional gastrointestinal complaints Genitourinary: Genitourinary: Denies dysuria Musculoskeletal: Musculoskeletal: Denies neck pain Integumentary/Breasts: Skin/Breast: Denies dry skin Neurologic: Reports Normal hearing present, Denies headache(s) and Denies weakness Psychiatric: Psychiatric: Denies anxiety Endocrine: Endocrine: Denies change in body appearance Hematologic/Lymphatic: Hematologic/Lymphatic: Denies easy bleeding Allergic/Immunologic: Allergic/Immunologic: Denies urticaria Exam Const: General: comfortable and no acute distress HENMT: Face/Nose/Sinus: Normal nares present Eyes: General: appearance normal, both eyes and all related structures Neck: Neck: no JVD Resp: Auscultation: clear to auscultation bilaterally Cardio: Rate: tachycardic Rhythm: regular rhythm GI: Inspection: non-distended Skin: General skin exam: normal color Neuro: General: gait normal Speech: normal speech Extrem: General: normal to inspection Psych: Mental Status: mental status grossly normal Objective Data Vital Signs Vital Signs: Vital Signs - 24 hr 04/23/25 12:13 04/23/25 12:23 04/23/25 12:33 Temperature Pulse Rate 70 60 50 L Respiratory Rate 21 H 21 H 15 Blood Pressure 142/67 H 96/93 L 91/59 L Pulse Oximetry 95 95 95 Oxygen Delivery Nasal Cannula Nasal Cannula Room Air Oxygen Flow Rate 2 2 04/23/25 12:44 04/23/25 12:54 04/23/25 14:00 Temperature 97.3 F L Pulse Rate 50 L 62 53 L Respiratory Rate 15 20 16 Blood Pressure 96/68 L 113/64 124/62 Pulse Oximetry 99 99 95 Oxygen Delivery Room Air Room Air Oxygen Flow Rate 04/23/25 20:00 04/23/25 21:00 04/24/25 06:00 Temperature 99.1 F 97.7 F Pulse Rate 111 H 105 H Respiratory Rate 20 18 Blood Pressure 132/84 139/78 Pulse Oximetry 97 96 Oxygen Delivery Room Air Oxygen Flow Rate 04/24/25 11:30 04/24/25 11:47 Temperature 96.9 F L 97.1 F L Pulse Rate 110 H 101 H Respiratory Rate 16 16 Blood Pressure 112/81 117/79 Pulse Oximetry 98 99 Oxygen Delivery Oxygen Flow Rate Intake/Output Intake/Output: Intake & Output 04/21/25 04/22/25 04/23/25 04/24/25 23:59 23:59 23:59 23:59 Intake Total 250 960 4875 740 Balance 423 362 4626 740 Meds/Results Medications: Active Medications Generic Name Dose Route Start Last Admin Trade Name Freq PRN Reason Stop Dose Admin Acetaminophen 650 mg 04/21/25 18:29 04/24/25 11:55 Acetaminophen 325 Mg Tablet PO 650 mg Q6H PRN Administration Mild Pain (1-3) or Fever Amlodipine Besylate 5 mg 04/22/25 09:00 04/23/25 08:50 Amlodipine Besylate 5 Mg Tablet PO Not Given On Hold: 04/23/25 12:50 DAILY LAMONTE Ascorbic Acid 1,000 mg 04/22/25 09:00 04/24/25 09:21 Ascorbic Acid 500 Mg Tablet PO 1,000 mg DAILY LAMONTE Administration Sodium Chloride 250 mls @ 30 mls/hr 04/24/25 07:17 04/24/25 11:55 Normal Saline Iv IV CONT 04/24/25 15:36 30 mls/hr .Q8H20M STA Administration Ondansetron HCl 4 mg 04/21/25 18:28 04/23/25 12:24 Ondansetron Inj 4 Mg/2 Ml Vial IV PUSH 4 mg Q6H PRN Administration Nausea And Vomiting Pantoprazole Sodium 40 mg 04/21/25 23:30 04/24/25 09:22 Pantoprazole Sodium Iv 40 Mg Vial IV PUSH 40 mg Q12HR LAMONTE Administration Pravastatin Sodium 40 mg 04/22/25 09:00 04/24/25 09:20 Pravastatin Sodium 20 Mg Tablet PO 40 mg DAILY LAMONTE Administration Sucralfate 1 gm 04/23/25 12:55 Sucralfate 1 Gm Tablet PO QID PRN abdominal pain Tramadol HCl 50 mg 04/21/25 18:29 Tramadol Hcl (*Crx) 50 Mg Tablet PO Q6H PRN Pain Rated 4-6 Vitamin B Complex 1 cap 04/22/25 09:00 04/24/25 09:21 Vitamin B Complex Capsule PO 1 cap DAILY LAMONTE Administration Labs Labs: Laboratory Results - last 24 hr 04/22/25 04/23/25 04/23/25 10:02 13:58 20:57 WBC RBC Hgb 7.6 L 7.0 L Hct 23.9 L 21.7 L MCV MCH MCHC RDW Plt Count MPV Immature Gran % (Auto) Neut % (Auto) Lymph % (Auto) [place] % (Auto) Eos % (Auto) Baso % (Auto) Lymph # (Auto) [place] # (Auto) Eos # (Auto) Baso # (Auto) Abs Immat Gran (auto) Absolute Neuts (auto) Absolute Nucleated RBC Nucleated RBC % Sodium Potassium Chloride Carbon Dioxide Anion Gap BUN Creatinine Estim Creat Clear Calc Estimated GFR Glucose Calcium Blood Type O Positive Antibody Screen Negative Crossmatch See Detail 04/24/25 05:53 WBC 13.0 H RBC 2.43 L Hgb 7.0 L Hct 21.8 L MCV 89.7 MCH 28.8 MCHC 32.1 RDW 13.9 Plt Count 256 MPV 9.8 Immature Gran % (Auto) 1.2 H Neut % (Auto) 75.9 H Lymph % (Auto) 11.8 L [place] % (Auto) 10.0 H Eos % (Auto) 0.9 Baso % (Auto) 0.2 Lymph # (Auto) 1.54 [place] # (Auto) 1.3 H Eos # (Auto) 0.1 Baso # (Auto) 0.0 Abs Immat Gran (auto) 0.15 H Absolute Neuts (auto) 9.9 H Absolute Nucleated RBC 0.000 Nucleated RBC % 0.0 Sodium 137 Potassium 4.1 Chloride 109 H Carbon Dioxide 27 Anion Gap 1 L BUN 21 H Creatinine 1.02 Estim Creat Clear Calc 67 Estimated GFR > 60 Glucose 89 Calcium 8.3 L Blood Type Antibody Screen Crossmatch
[2025-04-24 16:40] LABS: Hematocrit 25.8 % (42.0-52.0); Hemoglobin 8.5 g/dL (14.0-18.0)
[2025-04-25] MEDS: ACETAMINOPHEN 325 MG TABLET 650 MG PO ×2 (00:09→05:56)
[2025-04-25 06:00] VITALS: BP 130/70; PULSE 72; RESP 16; TEMP 36.4; O2SAT 95
--- NOTE | 2025-04-25 06:58 | P.PNIM_ITS ---
Assessment and Plan Assessment and Plan (1) Upper GI bleed: Code(s): K92.2 - Gastrointestinal hemorrhage, unspecified Status: Acute Assessment and Plan: - with multiple episodes of coffee-ground emesis and melena on admission - BP stable, mildly tachycardic - Trend H&H q8 hours. Transfuse hemoglobin less than 7 or hemodynamic instability - EGD with bleeding duodenal ulcer, treated with epinephrine and clips placed - Continue IV Protonix b.i.d. - Stop aspirin - GI following - monitor H&H q8h, continue IV protonix BID, consider CT angiogram with embolization if bleeding recurs (2) Acute blood loss anemia: Code(s): D62 - Acute posthemorrhagic anemia Status: Acute Assessment and Plan: - Hgb 13.9 05/2024. Hgb 9.0 on admit, trended down to 6.8 - 1u PRBCs transfused 04/23 - monitor H&H q6H - transfuse Hgb <7 - Hgb 7.0 04/24, patient with tachycardia - ordered additional 1u PRBCs (3) Dyslipidemia: Code(s): E78.5 - Hyperlipidemia, unspecified Status: Chronic Assessment and Plan: -Continue pravastatin (4) Hypertension: Qualifiers: Hypertension type: primary hypertension Qualified Code(s): I10 - Essential (primary) hypertension Code(s): I10 - Essential (primary) hypertension Status: Chronic Assessment and Plan: -hold due to low BP Plan DVT prophylaxis: ambulation, SCDs Code status: full code Dispo: likely home tomorrow if continues to improve Subjective Date/time seen: 04/25/25 06:58 Interval history: Patient seen and examined at bedside. Reported an episode of black stool to GI this AM. Hgb 7.0 and patient is tachycardic. Denies lightheadedness, SOB or chest pain. Patient hoping to discharge soon. Review of Systems Review of Systems: All systems reviewed & are unremarkable except as noted in HPI and below Exam Narrative: General: NAD Eyes: EOMI ENT: neck supple Cardiovascular: Tachycardic, regular rhythm Respiratory: Clear to auscultation, respirations even and unlabored on RA Gastrointestinal: Soft, non tender Genitourinary: no suprapubic tenderness Musculoskeletal: No edema Skin: warm, dry Neuro: Alert. Psych: Mood appropriate Objective Data Vital Signs Vital Signs: Vital Signs - 24 hr 04/24/25 08:00 04/24/25 11:30 04/24/25 11:47 Temperature 96.9 F L 97.1 F L Pulse Rate 110 H 101 H Respiratory Rate 16 16 Blood Pressure 112/81 117/79 Pulse Oximetry 98 99 Oxygen Delivery Room Air 04/24/25 12:45 04/24/25 13:45 04/24/25 14:00 Temperature 98.8 F 97.9 F 97.8 F Pulse Rate 101 H 102 H 104 H Respiratory Rate 16 16 16 Blood Pressure 132/80 123/62 123/73 Pulse Oximetry 98 96 98 Oxygen Delivery 04/24/25 14:30 04/24/25 20:00 04/24/25 20:33 Temperature 97.8 F 98.4 F Pulse Rate 104 H 103 H 103 H Respiratory Rate 16 18 18 Blood Pressure 123/61 114/65 Pulse Oximetry 98 97 97 Oxygen Delivery Room Air 04/25/25 06:00 Temperature 97.5 F L Pulse Rate 72 Respiratory Rate 16 Blood Pressure 130/70 Pulse Oximetry 95 Oxygen Delivery Intake/Output Intake/Output: Intake & Output 04/22/25 04/23/25 04/24/25 04/25/25 23:59 23:59 23:59 23:59 Intake Total 740 1200 1480 Balance 740 1200 1480 Meds/Results Medications: Active Medications Generic Name Dose Route Start Last Admin Trade Name Freq PRN Reason Stop Dose Admin Acetaminophen 650 mg 04/21/25 18:29 04/25/25 05:56 Acetaminophen 325 Mg Tablet PO 650 mg Q6H PRN Administration Mild Pain (1-3) or Fever Amlodipine Besylate 5 mg 04/22/25 09:00 04/23/25 08:50 Amlodipine Besylate 5 Mg Tablet PO Not Given On Hold: 04/23/25 12:50 DAILY LAMONTE Ascorbic Acid 1,000 mg 04/22/25 09:00 04/24/25 09:21 Ascorbic Acid 500 Mg Tablet PO 1,000 mg DAILY LAMONTE Administration Ondansetron HCl 4 mg 04/21/25 18:28 04/23/25 12:24 Ondansetron Inj 4 Mg/2 Ml Vial IV PUSH 4 mg Q6H PRN Administration Nausea And Vomiting Pantoprazole Sodium 40 mg 04/21/25 23:30 04/24/25 21:00 Pantoprazole Sodium Iv 40 Mg Vial IV PUSH 40 mg Q12HR LAMONTE Administration Pravastatin Sodium 40 mg 04/22/25 09:00 04/24/25 09:20 Pravastatin Sodium 20 Mg Tablet PO 40 mg DAILY LAMONTE Administration Sucralfate 1 gm 04/23/25 12:55 Sucralfate 1 Gm Tablet PO QID PRN abdominal pain Tramadol HCl 50 mg 04/21/25 18:29 Tramadol Hcl (*Crx) 50 Mg Tablet PO Q6H PRN Pain Rated 4-6 Vitamin B Complex 1 cap 04/22/25 09:00 04/24/25 09:21 Vitamin B Complex Capsule PO 1 cap DAILY LAMONTE Administration Labs Labs: Laboratory Results - last 24 hr 04/22/25 04/24/25 04/24/25 10:02 05:53 16:31 WBC 13.0 H RBC 2.43 L Hgb 7.0 L 8.5 L Hct 21.8 L 25.8 L MCV 89.7 MCH 28.8 MCHC 32.1 RDW 13.9 Plt Count 256 MPV 9.8 Immature Gran % (Auto) 1.2 H Neut % (Auto) 75.9 H Lymph % (Auto) 11.8 L [place] % (Auto) 10.0 H Eos % (Auto) 0.9 Baso % (Auto) 0.2 Lymph # (Auto) 1.54 [place] # (Auto) 1.3 H Eos # (Auto) 0.1 Baso # (Auto) 0.0 Abs Immat Gran (auto) 0.15 H Absolute Neuts (auto) 9.9 H Absolute Nucleated RBC 0.000 Nucleated RBC % 0.0 Sodium 137 Potassium 4.1 Chloride 109 H Carbon Dioxide 27 Anion Gap 1 L BUN 21 H Creatinine 1.02 Estim Creat Clear Calc 67 Estimated GFR > 60 Glucose 89 Calcium 8.3 L Blood Type O Positive Antibody Screen Negative Crossmatch See Detail Quality VTE Prophylaxis VTE prophylaxis: mechanical ordered
[2025-04-25 07:01] LABS: Hematocrit 25.2 % (42.0-52.0); Hemoglobin 8.0 g/dL (14.0-18.0); Immature Granulocyte Percent A 0.9 % (0-0.5); Lymphocytes Absolute Auto 1.35 K/mm3 (0.9-3.2); Mean Corpuscular HGB Conc 31.7 g/dl (32-36); Mean Corpuscular Hemoglobin 28.7 pg (26-34); Mean Corpuscular Volume 90.3 fl (80-100); Nucleated Red Blood Cells Absolute Auto 0.000 K/mm3 (0.0-0.012); Nucleated Red Blood Cells Perc 0.0 % (0.0-0.2); Platelet Count Result 280 k/mm3 (150-375); Red Blood Count 2.79 M/mm3 (4.6-6.20); White Blood Count 11.5 K/mm3 (4.5-10.0)
[2025-04-25 07:10] LABS: Anion Gap 3 mmol/L (4-12); Blood Urea Nitrogen 21 mg/dL (9-20); Calcium 8.4 mg/dL (8.4-10.2); Carbon Dioxide 27 mmol/L (22-30); Chloride 107 mmol/L (98-107); Estimated CRCL calculation 60 ml/min; Estimated Glomerular Filt Rate > 60; Glucose 92 mg/dL (65-110); Potassium 4.0 mmol/L (3.4-5.0); Sodium 137 mmol/L (137-145)
[2025-04-25] MEDS: VITAMIN B COMPLEX CAPSULE 1 CAP PO (08:13)
[2025-04-25] MEDS: ASCORBIC ACID 500 MG TABLET 1000 MG PO (08:13)
[2025-04-25] MEDS: PRAVASTATIN SODIUM 20 MG TABLET 40 MG PO (08:14)
[2025-04-25] MEDS: PANTOPRAZOLE SODIUM IV 40 MG VIAL IV PUSH (08:14)
--- NOTE | 2025-04-25 11:24 | P.DS_ITS ---
DS: Admitting Diagnosis Discharge Date 04/25/2025 Admitting Diagnosis GI bleed DS: Discharge Diagnosis Discharge Diagnosis (1) Upper GI bleed: Code(s): K92.2 - Gastrointestinal hemorrhage, unspecified Status: Acute Assessment and Plan: - with multiple episodes of coffee-ground emesis and melena on admission - BP stable, mildly tachycardic - Trend H&H q8 hours. Transfuse hemoglobin less than 7 or hemodynamic instability - EGD with bleeding duodenal ulcer, treated with epinephrine and clips placed - Continue IV Protonix b.i.d. - Stop aspirin - GI following - monitor H&H q8h, continue IV protonix BID, consider CT angiogram with embolization if bleeding recurs (2) Acute blood loss anemia: Code(s): D62 - Acute posthemorrhagic anemia Status: Acute Assessment and Plan: - Hgb 13.9 05/2024. Hgb 9.0 on admit, trended down to 6.8 - 1u PRBCs transfused 04/23 - monitor H&H q6H - transfuse Hgb <7 - Hgb 7.0 04/24, patient with tachycardia - ordered additional 1u PRBCs (3) Dyslipidemia: Code(s): E78.5 - Hyperlipidemia, unspecified Status: Chronic Assessment and Plan: -Continue pravastatin (4) Hypertension: Qualifiers: Hypertension type: primary hypertension Qualified Code(s): I10 - Essential (primary) hypertension Code(s): I10 - Essential (primary) hypertension Status: Chronic Assessment and Plan: -hold due to low BP Plan DVT prophylaxis: ambulation, SCDs Code status: full code Dispo: likely home tomorrow if continues to improve DS: Summary Hospital Course Reason for hospitalization: GI bleed Hospital Course: The patient is a 74-year-old male with a history of hypertension and hyperlipidemia who presented on 04/21/25 with nausea, vomiting, lightheadedness, and episodes of black, coffee-ground emesis in the setting of recent left hip replacement and postoperative aspirin use (81 mg BID). Initial evaluation demonstrated hemodynamic stability with anemia (Hgb 9.0, down from 13.9 earlier in 2024) and leukocytosis. Imaging including CTA chest/abdomen/pelvis was negative for PE or other acute intra-abdominal pathology. He was started on IV proton pump inhibitor therapy and gastroenterology was consulted. During hospitalization, his hemoglobin continued to downtrend, reaching a alba of 6.8, associated with tachycardia, requiring transfusion of two units of packed red blood cells. EGD performed on 04/23/25 revealed a bleeding duodenal ulcer, which was successfully treated with epinephrine injection and clip placement, with no further active bleeding. Aspirin was discontinued, and he was maintained on IV Protonix transitioned to oral therapy. His hemoglobin stabilized (8.0 on day of discharge), vital signs normalized, and he tolerated a regular diet without recurrent hematemesis or abdominal pain, with improving stool color. Hypertension medications were held during periods of low blood pressure and dyslipidemia therapy was continued. By 04/25/25, the patient was clinically s table, ambulating, and deemed appropriate for discharge home with plans for outpatient PPI therapy, avoidance of NSAIDs, education on signs of recurrent GI bleeding, and outpatient follow-up. Status at Discharge Functional status at discharge: independent ambulation Overall status at discharge: patient is back to baseline Time Spent with Patient Time attestation: Total time spent providing and/or coordinating discharge services: 31 Exam Narrative: General: NAD Eyes: EOMI ENT: neck supple Cardiovascular: Tachycardic, regular rhythm Respiratory: Clear to auscultation, respirations even and unlabored on RA Gastrointestinal: Soft, non tender Genitourinary: no suprapubic tenderness Musculoskeletal: No edema Skin: warm, dry Neuro: Alert. Psych: Mood appropriate DS: Data Data Completed and Pending Labs on day of discharge: Labs from last 24 hours 04/25/25 04/24/25 04/22/25 05:32 16:31 10:02 WBC 11.5 H RBC 2.79 L Hgb 8.0 L 8.5 L Hct 25.2 L 25.8 L MCV 90.3 MCH 28.7 MCHC 31.7 L RDW 14.4 Plt Count 280 MPV 9.6 Immature Gran % (Auto) 0.9 H Neut % (Auto) 74.9 H Lymph % (Auto) 11.7 L [place] % (Auto) 10.8 H Eos % (Auto) 1.4 Baso % (Auto) 0.3 Lymph # (Auto) 1.35 [place] # (Auto) 1.3 H Eos # (Auto) 0.2 Baso # (Auto) 0.0 Abs Immat Gran (auto) 0.10 H Absolute Neuts (auto) 8.7 H Absolute Nucleated RBC 0.000 Nucleated RBC % 0.0 Sodium 137 Potassium 4.0 Chloride 107 Carbon Dioxide 27 Anion Gap 3 L BUN 21 H Creatinine 1.14 Estim Creat Clear Calc 60 Estimated GFR > 60 Glucose 92 Calcium 8.4 Blood Type O Positive Antibody Screen Negative Crossmatch See Detail Discharge Plan Discharge Attending physician on discharge: Viktoria Stewart Consulting providers: Dorothea Vicente; Maty Hinkle; Jimmy Kam Discharging Clinician: Jimmy Kam Anticipated Discharge Date/Time: 04/25/25 11:19 Patient Disposition: Home Activity: as tolerated Diet: regular Discharge Instructions: Discharge disposition: Home Take medications as prescribed Monitor blood pressures Take caution while standing, rising, or moving Change positions slowly taking a break between each position change If you standing feel dizzy sit back down and take a break Encouraged to continue with yearly vaccinations Return to the emergency department if you develop sudden shortness of breath, chest pain, nausea, vomiting, upset stomach or intractable diarrhea Return to the emergency department if you develop fever greater than 101.5 Follow-up with the primary care physician within 1-2 weeks Thank you for choosing [facility] for your healthcare needs Patient Instructions: Antibiotic Form Patient Language: Greek Stand Alone Forms: General Discharge Information Follow-up/Referrals: Gregorio Vásquez MD [Primary Care Provider, Internal Medicine] Discharge Medications: New pantoprazole [Protonix] 40 mg tablet,delayed release (DR/EC) 40 mg PO HS 28 Days Qty: 28 0RF Continued pravastatin 40 mg tablet 40 mg PO DAILY amlodipine 5 mg tablet 5 mg PO DAILY ascorbic acid (vitamin C) 1,000 mg Tablet 1,000 mg PO DAILY vitamin B complex Capsule 1 cap PO DAILY Glucosamine Chondroitin 550-30-1 mg Capsule 1 cap PO DAILY Discontinued vitamin E 400 unit Tablet 400 unit PO DAILY Date of admission: 04/23/25 11:23 Primary Care Provider: Gregorio Vásquez Admitting Provider: Cheo Boyle Attending physician on admission: Cheo Boyle Condition: Stable Quality VTE Prophylaxis VTE prophylaxis: mechanical ordered
--- NOTE | 2025-04-25 12:02 | P.PNGI_ITS ---
Progress Note: A&P Assessment and Plan (1) Acute duodenal ulcer with bleeding: Code(s): K26.0 - Acute duodenal ulcer with hemorrhage Status: Acute (2) Upper GI bleed: Code(s): K92.2 - Gastrointestinal hemorrhage, unspecified Status: Acute (3) Hematemesis: Qualifiers: Nausea presence: without nausea Qualified Code(s): K92.0 - Hematemesis Code(s): K92.0 - Hematemesis Status: Acute (4) Acute blood loss anemia: Code(s): D62 - Acute posthemorrhagic anemia Status: Acute Plan 1. Bleeding Duodenal Ulcer/ Acute Blood Loss Anemia: EGD on 04/23/2025 showed a bleeding duodenal ulcer which was treated with epinephrine and clips with no further bleeding after complete. This was likley secondary to ASA 81 mg BID that he was taking. He received an additional unit of packed red blood cells yesterday 04/24 for hemoglobin of 7 with post transfusion hemoglobin of 8.5 and stable this morning at 8. 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 He is ready to go home and feeling well. GI bleed has resolved - Continue Protonix 40 mg PO BID outpatient. - Avoid NSAIDS - Discussed with him signs and symptoms of recurrent GI bleed when to return to the ER - Recommend follow-up outpatient in our office Time Spent With Patient Time with patient: 15 - 25 minutes Subjective Date/time seen: 04/25/25 0830 Interval history: Patient is doing well and ready to go home. He had 1 bowel movement today that he states is still dark but not as dark as it was. He denies any abdominal pain. He is eating a regular diet without difficulty. Denies any nausea, vomiting or hematemesis. Denies any chest pain or shortness of breath Review of Systems Review of Systems: All systems reviewed & are unremarkable except as noted in HPI and below Exam Const: General: comfortable and no acute distress Eyes: Sclera: sclerae normal Resp: Effort & Inspection: normal respiratory effort GI: GI Palp: Yes Soft to palpation, No Tenderness to palpation present (GI) and No Guarding due to palpation present (GI) Auscultation: normal bowel sounds Extrem: General: normal to inspection Psych: Mental Status: mental status grossly normal Affect: normal affect Objective Data Vital Signs Vital Signs: Vital Signs - 24 hr 04/24/25 12:45 04/24/25 13:45 04/24/25 14:00 Temperature 98.8 F 97.9 F 97.8 F Pulse Rate 101 H 102 H 104 H Respiratory Rate 16 16 16 Blood Pressure 132/80 123/62 123/73 Pulse Oximetry 98 96 98 Oxygen Delivery 04/24/25 14:30 04/24/25 20:00 04/24/25 20:33 Temperature 97.8 F 98.4 F Pulse Rate 104 H 103 H 103 H Respiratory Rate 16 18 18 Blood Pressure 123/61 114/65 Pulse Oximetry 98 97 97 Oxygen Delivery Room Air 04/25/25 06:00 04/25/25 08:00 Temperature 97.5 F L Pulse Rate 72 Respiratory Rate 16 Blood Pressure 130/70 Pulse Oximetry 95 Oxygen Delivery Room Air Intake/Output Intake/Output: Intake & Output 04/22/25 04/23/25 04/24/25 04/25/25 23:59 23:59 23:59 23:59 Intake Total 740 1200 1480 222 Balance 740 1200 1480 222 Meds/Results Medications: Active Medications Generic Name Dose Route Start Last Admin Trade Name Freq PRN Reason Stop Dose Admin Acetaminophen 650 mg 04/21/25 18:29 04/25/25 05:56 Acetaminophen 325 Mg Tablet PO 650 mg Q6H PRN Administration Mild Pain (1-3) or Fever Amlodipine Besylate 5 mg 04/22/25 09:00 04/23/25 08:50 Amlodipine Besylate 5 Mg Tablet PO Not Given On Hold: 04/23/25 12:50 DAILY LAMONTE Ascorbic Acid 1,000 mg 04/22/25 09:00 04/25/25 08:13 Ascorbic Acid 500 Mg Tablet PO 1,000 mg DAILY LAMONTE Administration Ondansetron HCl 4 mg 04/21/25 18:28 04/23/25 12:24 Ondansetron Inj 4 Mg/2 Ml Vial IV PUSH 4 mg Q6H PRN Administration Nausea And Vomiting Pantoprazole Sodium 40 mg 04/21/25 23:30 04/25/25 08:14 Pantoprazole Sodium Iv 40 Mg Vial IV PUSH 40 mg Q12HR LAMONTE Administration Pravastatin Sodium 40 mg 04/22/25 09:00 04/25/25 08:14 Pravastatin Sodium 20 Mg Tablet PO 40 mg DAILY LAMONTE Administration Sucralfate 1 gm 04/23/25 12:55 Sucralfate 1 Gm Tablet PO QID PRN abdominal pain Tramadol HCl 50 mg 04/21/25 18:29 Tramadol Hcl (*Crx) 50 Mg Tablet PO Q6H PRN Pain Rated 4-6 Vitamin B Complex 1 cap 04/22/25 09:00 04/25/25 08:13 Vitamin B Complex Capsule PO 1 cap DAILY LAMONTE Administration Labs Labs: Laboratory Results - last 24 hr 04/22/25 04/24/25 04/25/25 10:02 16:31 05:32 WBC 11.5 H RBC 2.79 L Hgb 8.5 L 8.0 L Hct 25.8 L 25.2 L MCV 90.3 MCH 28.7 MCHC 31.7 L RDW 14.4 Plt Count 280 MPV 9.6 Immature Gran % (Auto) 0.9 H Neut % (Auto) 74.9 H Lymph % (Auto) 11.7 L [place] % (Auto) 10.8 H Eos % (Auto) 1.4 Baso % (Auto) 0.3 Lymph # (Auto) 1.35 [place] # (Auto) 1.3 H Eos # (Auto) 0.2 Baso # (Auto) 0.0 Abs Immat Gran (auto) 0.10 H Absolute Neuts (auto) 8.7 H Absolute Nucleated RBC 0.000 Nucleated RBC % 0.0 Sodium 137 Potassium 4.0 Chloride 107 Carbon Dioxide 27 Anion Gap 3 L BUN 21 H Creatinine 1.14 Estim Creat Clear Calc 60 Estimated GFR > 60 Glucose 92 Calcium 8.4 Blood Type O Positive Antibody Screen Negative Crossmatch See Detail
== END 2025-04-25 12:45 | disposition home or self-care (01) | DRG 378 ==
PROVIDERS: Internal Medicine Gastroenterology; Nurse Practitioner Adult Health; Physician Assistant; Admitting Provider Internal Medicine; PCP Internal Medicine; Visit Provider Physician Assistant
PROC: 0DJ08ZZ Inspection of Upper Intestinal Tract, Via Natural or Artificial Opening Endoscopic (ICD-10-PCS; principal; 2025-04-23 13:30)
DX: K26.4 Chronic or unspecified duodenal ulcer with hemorrhage (principal); D62 Acute posthemorrhagic anemia; E78.5 Hyperlipidemia, unspecified; I10 Essential (primary) hypertension; Z96.643 Presence of artificial hip joint, bilateral
CPT/HCPCS: 36415; 36430; 80048; 85014; 85018; 85025; 86850; 86900; 86901; 86923; 93005; A9270; G0378; J0168; J2405; J2470; J2704; J7050; J7120; P9016